=== PATIENT | male | born 1930 | race Caucasian/White ===

== ENCOUNTER 2017-07-09 20:05 | Inpatient (IN) | payer OTHER ==
--- NOTE | 2017-07-09 20:42 | PDOC ---
Attending Attestation - Resident Resident Name: Timothy Blevins - HPI HPI: 07/09/17 22:47 Pt comes with vomiting and shivering; found by family in the bathroom vomiting. Pt has a fever and his septic workup reveals elevated WBC count with a left shift. Pt has pneumonia on CXR. O2say on room air is 92%. With nasal cannula it goes to 100% 07/09/17 22:47 Pt will be treated with abx for a pneumonia. Admit to [facility]; PMD is Dr. Last Doan - Physicial Exam PE: 07/09/17 22:49 Soft abd NT ND; no leg edema; pt afebrile at this after IV ofirmev. No flank pain. Breath sounds clear bilaterally. - Medical Decision Making 07/09/17 22:50 Admit for sepsis and pneumonia.
[2017-07-09] MEDS ORDERED: SODIUM CHLORIDE 0.9% 1000 ML INFUS.BAG IV ONE (20:47)
[2017-07-09] MEDS ORDERED: ACETAMINOPHEN INJECTION 100 ML IVPB ONE (20:55)
--- NOTE | 2017-07-09 21:25 | PDOC ---
History of Present Illness - General Chief Complaint: Nausea/Vomiting Stated Complaint: VOMITING Time Seen by Provider: 07/09/17 20:07 History Source: Family - History of Present Illness Initial Comments: 07/09/17 21:20 The patient is an 87M with a PMH of parkinson's demetia and HTN who presents to the ED via EMS with family. The son is at bedside and is translating. The son states that the patient was in normal health when he went to the restroom and was found by family to be shaking and vomiting in the toilet. The son states that they had to hold him up while he was shaking. This has never happened before. The patient has no complaints and the son states that the patient had no complaints prior to this episode. The patient is demented and does not provide any history. Past History - Past Medical History Allergies/Adverse Reactions: Allergies Allergy/AdvReac Type Severity Reaction Status Date / Time No Known Allergies Allergy Verified 07/09/17 20:10 Home Medications: Ambulatory Orders Amlodipine Besylate [Norvasc -] 10 mg PO DAILY #0 tablet 08/20/12 Aspirin Coated [Ecotrin -] 81 mg PO DAILY #0 tablet.ec 08/20/12 Carbidopa/Levodopa [Carbidopa-Levo 25-100 Tab] 1 each PO TID #0 tablet 08/20/12 Fenofibrate 160 mg PO DAILY #0 tablet 08/20/12 Metoprolol Succinate [Toprol XL -] 50 mg PO DAILY #0 tab.sr.24h 08/20/12 Rosuvastatin Calcium [Crestor] 20 mg PO DAILY #0 tablet 08/20/12 Tamsulosin HCl 0.4 mg PO DAILY 07/09/17 Dementia: Yes GI Disorders: Yes (bph) HTN: Yes Hypercholesterolemia: Yes - Surgical History Abdominal Surgery: No - Immunization History Td Vaccination: Yes TDAP Vaccination: Yes Immunization Up to Date: Yes - Suicide/Smoking/Psychosocial Hx Smoking Status: No Smoking History: Never smoked Years of Tobacco Use: 0 Have you smoked in the past 12 months: No Number of Cigarettes Smoked Daily: 0 Cigars Per Day: 0 Information on smoking cessation initiated: No Hx Alcohol Use: No Drug/Substance Use Hx: No Substance Use Type: None Hx Substance Use Treatment: No Review of Systems - Review of Systems Able to Perform ROS?: No (Patient demented.) *Physical Exam - Vital Signs Last Vital Signs Temp Pulse Resp BP Pulse Ox 97.9 F 96 H 20 143/82 93 L 07/09/17 20:10 07/09/17 20:10 07/09/17 20:10 07/09/17 20:10 07/09/17 20:10 - Physical Exam General Appearance: Yes: Nourished, Appropriately Dressed. No: Apparent Distress HEENT: positive: Normal Voice, Hearing Grossly Normal Respiratory/Chest: positive: Decreased Breath Sounds. negative: Chest Tender, Lungs Clear, Normal Breath Sounds, Respiratory Distress Cardiovascular: positive: Regular Rhythm, Regular Rate, S1, S2. negative: Diastolic Murmur, Systolic Murmur Gastrointestinal/Abdominal: positive: Flat, Soft. negative: Tender Musculoskeletal: negative: CVA Tenderness (R), CVA Tenderness (L) Extremity: positive: Normal Inspection, Normal Range of Motion. negative: Swelling, Calf Tenderness Integumentary: positive: Dry, Warm. 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 negative: Fully Oriented, EOM Palsy, Facial Droop, Numbness, Sensory Deficit, Confused, Disoriented Heart Score/ECG Review - History History: Slightly suspicious - Electrocardiogram EKG: Non specific repolarization disturbance - Age Age: >/= 65 - Risk Factors Risk Factors Heart Score: Yes Hx Hypertension Based on the list above the patient has:: 1-2 risk factors - Troponin Troponin: </= normal limit - Score Heart Score - Total: 4 - ECG Intrepretation Rhythm: Regular Rhythm - [place]: Normal - QRS Widened: RBBB - ECG Impressions Comment:: 07/09/17 22:11 NSR Rate 86 QRS 92 QTc 428 ED Treatment Course - LABORATORY CBC & Chemistry Diagram: 07/09/17 21:25 07/09/17 21:15 - RADIOLOGY Radiology Studies Ordered: Category Date Time Status CHEST X-RAY PORTABLE* [RAD] Stat Radiology 07/09/17 20:45 Taken Medical Decision Making - Medical Decision Making 07/09/17 21:26 The patient is an 87M with a PMH of Parkinson's dementia and HTN who presents to the ED after an episode of vomiting. The patient has a notable temp of 102.3F. Sepsis protocol is being followed. I have high suspicion for a UTI or PNA which could cause the patient's current presentation. Will order labs, give IV tylenol, fluids, and will reassess patient when labs return. 07/09/17 22:08 WBC 13.4 w/ neutrophilia. UA indicating proteinuria. BUN/Cr 24/1.5. 07/09/17 22:37 Trop 0.06. I have spoken with Dr. Ryan and given her report on this patient. He will be admitted to her service with a tele bed. UA negative for UTI. CXR showing patchy infiltrate and will cover with zosyn for CAP. *DC/Admit/Observation/Transfer Diagnosis at time of Disposition: Non-ST elevation (NSTEMI) myocardial infarction Pneumonia Qualifiers: Pneumonia type: due to unspecified organism Laterality: bilateral Lung location : unspecified part of lung Qualified Code(s): J18.9 - Pneumonia, unspecified organism; J18.9 - Pneumonia, unspecified organism - Discharge Dispostion Condition at time of disposition: Stable Admit: Yes - Referrals Referrals: Last Doan MD [Primary Care Provider] -
[2017-07-09 21:34] LABS: VENOUS PH 7.4 (7.32-7.42)
[2017-07-09 21:34] LABS: BASOPHIL 0.3 % (0-2.0); EOSINOPHIL 0.1 % (0-4.5); MCH 25.7 pg (25.7-33.7); MCHC 32.3 g/dl (32.0-35.9); MEAN CELL VOLUME 79.7 fl (80-96); MEAN PLT VOLUME 8.7 fl (7.5-11.1); NEUTROPHILS 91.3 % (42.8-82.8); RDW 16.8 % (11.9-15.9); WHITE BLOOD COUNT 13.4 K/mm3 (4.0-10.0)
[2017-07-09 21:35] LABS: VENOUS BLOOD GAS HCO3 26.2 meq/L (19-25)
[2017-07-09 21:49] LABS: URINE APPEARANCE CLEAR; URINE BILIRUBIN NEGATIVE (NEGATIVE); URINE BLOOD 1+ (NEGATIVE); URINE COLOR YELLOW; URINE GLUCOSE (UA) NEGATIVE (NEGATIVE); URINE KETONE TRACE (NEGATIVE); URINE NITRITE NEGATIVE (NEGATIVE); URINE UROBILINOGEN NEGATIVE mg/dL (0.2-1.0)
[2017-07-09 21:54] LABS: ALBUMIN 3.7 g/dl (3.4-5.0); ANION GAP 9 (8-16); BILIRUBIN,TOTAL 0.7 mg/dL (0.2-1.0); CALCIUM 8.6 mg/dL (8.5-10.1); CO2 25 mmol/L (21-32); CREATININE 1.5 mg/dL (0.7-1.3); GLUCOSE,RANDOM 126 mg/dL (74-106); SGPT/ALT 24 U/L (12-78)
[2017-07-09 21:54] LABS: URINE PROTEIN 2+ (NEGATIVE)
[2017-07-09 21:55] LABS: URINE MUCUS RARE; URINE RBC 1 /hpf (0-3); URINE WBC 2 /hpf (3-5)
[2017-07-09 21:57] LABS: ALK PHOS 53 U/L (45-117); CPK 95 IU/L (39-308); TROPONIN I 0.06 ng/ml (0.00-0.05)
[2017-07-09 21:59] LABS: PLATELET COUNT 310 K/MM3 (134-434)
[2017-07-09 22:04] LABS: SGOT/AST 34 U/L (15-37)
[2017-07-09] MEDS ORDERED: PIPERACILLIN/TAZOB 4.5 GM/100 ML PRE-DOCKED IVPB ONE (22:40)
[2017-07-09] MEDS ORDERED: PIPERACILLIN/TAZOB 4.5 GM 100 ML IVPB ONE (23:24)
[2017-07-09] MEDS ORDERED: ACETAMINOPHEN 1000 MG/100 ML VIAL (NON FORMULARY) IVPB ONE (23:49)
[2017-07-10] MEDS ORDERED: ACETAMINOPHEN 325 MG TABLET (FP) PO PRN (02:16)
[2017-07-10] MEDS ORDERED: ONDANSETRON 4 MG/2 ML VIAL IVPB PRN (02:18)
[2017-07-10] MEDS: DEXTROSE 5%-0.45% SALINE 1,000 ML IV SCH ×2 (03:12→09:25)
[2017-07-10] MEDS ORDERED: CARBIDOPA/LEVODOPA 25/100 TABLET (FP) ONE (05:23)
[2017-07-10] MEDS: CARBIDOPA/LEVODOPA 25/100 TABLET (FP) PO SCH ×3 (05:28→21:09)
[2017-07-10 05:30] LABS: BASOPHIL 0.1 % (0-2.0); EOSINOPHIL 0.1 % (0-4.5); MCH 25.6 pg (25.7-33.7); MCHC 32.5 g/dl (32.0-35.9); MEAN PLT VOLUME 7.8 fl (7.5-11.1); PLATELET COUNT 268 K/MM3 (134-434); RDW 16.3 % (11.9-15.9); WHITE BLOOD COUNT 12.5 K/mm3 (4.0-10.0)
[2017-07-10 05:52] LABS: ANION GAP 8 (8-16); BILIRUBIN,TOTAL 0.6 mg/dL (0.2-1.0); CALCIUM 8.2 mg/dL (8.5-10.1); CO2 25 mmol/L (21-32); CREATININE 1.5 mg/dL (0.7-1.3); GLUCOSE,RANDOM 174 mg/dL (74-106); SGOT/AST 22 U/L (15-37); SGPT/ALT 12 U/L (12-78); TOT PROT 5.9 g/dl (6.4-8.2)
[2017-07-10 05:53] LABS: ALK PHOS 43 U/L (45-117)
[2017-07-10 05:55] LABS: TROPONIN I 0.14 ng/ml (0.00-0.05)
[2017-07-10] MEDS ORDERED: TAMSULOSIN HCL 0.4 MG CAP.ER.24H (FP) ONE (09:15)
--- NOTE | 2017-07-10 09:17 | CON.CARD ---
Consult Consult Specialty:: Cardiology Referred by:: Dr. Ryan Reason for Consultation:: Elevated troponin - History of Present Illness Chief Complaint: Chills History of Present Illness: 87 year old man with a history of Parkinsons disease and dementia, HTN, CKD, mildly dilated asc aorta, BPH admitted with fever, chills, elevated wbc and incidentally noted to have a slightly elevated troponin.. Pt seen and examined this am in nad. no complaints of chest pain or sob reported. no palpitations. no lightheadedness, dizziness, syncope, or near syncope. no pnd, orthopnea, or LE edema. 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 Cardio/Vascular: Yes: Aneurysm, HTN Renal/: Yes: Renal Inusuff, BPH - Alcohol/Substance Use Hx Alcohol Use: No - Smoking History Smoking history: Never smoked Have you smoked in the past 12 months: No Aproximately how many cigarettes per day: 0 - Social History ADL: Family Assistance History of Recent Travel: No Home Medications - Allergies Allergies/Adverse Reactions: Allergies Allergy/AdvReac Type Severity Reaction Status Date / Time No Known Allergies Allergy Verified 07/09/17 20:10 - Home Medications Home Medications: Ambulatory Orders Amlodipine Besylate [Norvasc -] 10 mg PO DAILY #0 tablet 08/20/12 Aspirin Coated [Ecotrin -] 81 mg PO DAILY #0 tablet.ec 08/20/12 Carbidopa/Levodopa [Carbidopa-Levo 25-100 Tab] 1 each PO TID #0 tablet 08/20/12 Fenofibrate 160 mg PO DAILY #0 tablet 08/20/12 Metoprolol Succinate [Toprol XL -] 50 mg PO DAILY #0 tab.sr.24h 08/20/12 Rosuvastatin Calcium [Crestor] 20 mg PO DAILY #0 tablet 08/20/12 Tamsulosin HCl 0.4 mg PO DAILY 07/09/17 Family Disease History - Family Disease History Family History: Denies Review of Systems - Review of Systems Constitutional: reports: Chills, Fever, Weakness. denies: No Symptoms, Diaphoresis, Lethargy, Loss of Appetite, Malaise, Night Sweats, Unintentional Wgt. Loss, Other Eyes: denies: No Symptoms, Blind Spots, Blurred Vision, Double Vision, Eye Pain , Floaters, Photophobia, Recent Change in Vision, Other HENT: denies: No Symptoms, Difficult Swallowing, Ear Discharge, Ear Pain, Epistaxis, Gingival Bleeding, Hearing Loss, Mouth Swelling, Nasal Congestion, Ocular Prosthesis, Throat Pain, Toothache, Ringing in Ears, Other Neck: denies: No Symptoms, Decreased ROM, Lumps, Pain on Movement, Stiffness, Swollen Glands, Tenderness, Other Cardiovascular: denies: No Symptoms, Chest Pain, Edema, Palpitations, Shortness of Breath, Other Respiratory: denies: No Symptoms, Cough, Exercise Intolerance, Hemoptysis, Orthopnea, PND, Snoring, SOB, SOB on Exertion, Wheezing, Other Gastrointestinal: denies: No Symptoms, Abdominal Pain, Bloating, Constipation, Diarrhea, Dysphagia, Indigestion, Melena, Nausea, Rectal Bleeding, Vomiting, Vomiting Blood, Other Genitourinary: denies: No Symptoms, Burning, Discharge, Dysuria, Flank Pain, Frequency, Hematuria, Incontinence, Lesions, Menses, Pain, Testicular Mass, Testicular Pain, Testicular Swelling, Urgency, Vaginal Bleeding, Other Breasts: denies: No Symptoms Reported, See HPI, Breast Implants, Discharge from Nipple, Lumps, Pain, Skin Changes, Other Musculoskeletal: denies: No Symptoms, Back Pain, Crepitus, Decreased ROM, Extremity Pain, Joint Pain, Joint Swelling, Muscle Pain, Muscle Cramps, Muscle Weakness, Other Integumentary: denies: No Symptoms, Blister, Bruising, Change in Color, Eczema, Erythema, Incision, Lesions, Lump, Pallor, Pruritis, Rash, Wound, Other Neurological: reports: Pre-Existing Deficit. denies: No Symptoms, Change in LOC , Change in Speech, Confusion, Dizziness, Headache, Incoordination, Numbness, Parasthesia, Seizure, Syncope, Tremors, Unsteady Gait, Weakness, Other Endocrine: denies: No Symptoms, Excessive Sweating, Flushing, Increased Hunger, Increased Thirst, Intolerance to Cold, Intolerance to Heat, Unexplained Weight Gain, Unexplained Weight Loss, Other Hematology/Lymphatic: denies: No Symptoms, Easily Bruised, Excessive Bleeding, Swollen Glands, Other Psychiatric: denies: No Symptoms, Altered Sleep Pattern, Anxiety, Depression, Hallucinations, Panic, Paranoia, Suicidal, Other - Risk Factors Known Risk Factors: Yes: Age, Hypertension Vital Signs: Vital Signs Temperature 98.6 F 07/10/17 07:26 Pulse Rate 66 07/10/17 07:26 Respiratory Rate 18 07/10/17 05:24 Blood Pressure 127/68 07/10/17 07:26 O2 Sat by Pulse Oximetry (%) 100 07/10/17 07:26 Constitutional: Yes: No Distress, Calm Eyes: Yes: Conjunctiva Clear, EOM Intact, PERRL HENT: Yes: Atraumatic, Normocephalic Neck: Yes: Supple, Trachea Midline Respiratory: Yes: Regular, CTA Bilaterally. No: Rales, Rhonchi, SOB, Wheezes Gastrointestinal: Yes: Normal Bowel Sounds, Soft. No: Distention, Tenderness Cardiovascular: Yes: Regular Rate and Rhythm. No: Bradycardia, Tachycardia, Pulse Irregular, Gallop, Rub, Varicosities JVD: No Carotid Bruit: No PMI: Non-Displaced Heart Sounds: Yes: S1, S2. No: Split S2, S3, S4, Clicks, Gallop, Rub, Bruit Murmur: No: Systolic Murmur, Diastolic Murmur Extremities: Yes: WNL Edema: No Peripheral Pulses WNL: Yes Peripheral Pulses: 2+ Left Doralis Pedis, 2+ Right Dorsalis Pedis Integumentary: Yes: WNL Neurological: Yes: Alert Psychiatric: Yes: Alert - Other Data Labs, Other Data: CBC, BMP 07/10/17 05:20 07/10/17 05:20 INR, PTT INR Cancelled 07/09/17 21:15 Troponin, BNP 07/10/17 05:20 Troponin I 0.14 H D Troponin, BNP 07/10/17 05:20 Troponin I 0.14 H D ekg-nsr 86bpm, incomplete rbbb, nsst Echo: Report Reviewed Ejection Fraction %: LVEF > or = 40 % Imaging - Results Chest X-ray: Report Reviewed, Image Reviewed EKG: Report Reviewed, Image Reviewed Other: Report Reviewed, Image Reviewed Assessment/Plan 87 year old man with a history of Parkinsons disease and dementia, HTN, CKD, mildly dilated asc aorta, BPH admitted with fever, chills, elevated wbc and incidentally noted to have a slightly elevated troponin. Elevated troponin-minimally elevated with normal CK level, did not significantly trend up -unlikely ACS, more likely trop elevated due to CKD and sepsis -no reported chest pain or sob -no ischemia on ekg -cont to trend cardiac enzymes to ensure they do not trend up, once trend down can stop -cont home medical regimen for now -no events on tele overnight, can dc tele -f/up echo to assess for any structural heart disease -no ischemia on last nuclear stress test 2014 HTN-well controlled -monitor off medication for now in setting of likely sepsis -once establish clear stable BP can re-introduce meds as needed Mildly dilated asc aorta -stable, monitored as outpatient -outpatient f/up Carotid plaque without stenosis -cont asa and statin
[2017-07-10] MEDS: TAMSULOSIN HCL 0.4 MG CAP.ER.24H (FP) PO SCH (09:25)
[2017-07-10] MEDS ORDERED: PIPERACILLIN/TAZOB 3.375 GM 50 ML IVPB SCH (10:00)
[2017-07-10] MEDS: HEPARIN NA (PORCINE) 5,000 UNITS/ML 1ML VIAL SQ SCH ×2 (10:56→21:09)
[2017-07-10] MEDS: FENOFIBRIC ACID 135 MG CAP PO SCH (10:56)
[2017-07-10] MEDS: ASPIRIN COATED 81 MG TABLET.EC PO SCH (10:57)
--- NOTE | 2017-07-10 13:40 | HP ---
Admitting History and Physical - Admission History of Present Illness: Pt is a 87 y/o male with a PMH significant for parkinson's, demetia,HTN, BPH, and CKD who is unable to give a history. Pt's son states that the patient was in normal health when he went to the restroom and was found by family to be shaking and vomiting in the toilet. The son states that they had to hold him up while he was shaking. In the ER pt found to be febrile to 102.9 w/ a WBC of > 13 ,000. 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 Cardio/Vascular: Yes: Aneurysm, HTN Renal/: Yes: Renal Inusuff, BPH - Alcohol/Substance Use Hx Alcohol Use: No - Smoking History Smoking history: Never smoked Have you smoked in the past 12 months: No Aproximately how many cigarettes per day: 0 - Social History ADL: Family Assistance History of Recent Travel: No Home Medications - Allergies Allergies/Adverse Reactions: Allergies Allergy/AdvReac Type Severity Reaction Status Date / Time No Known Allergies Allergy Verified 07/09/17 20:10 - Home Medications Home Medications: Ambulatory Orders Amlodipine Besylate [Norvasc -] 10 mg PO DAILY #0 tablet 08/20/12 Aspirin Coated [Ecotrin -] 81 mg PO DAILY #0 tablet.ec 08/20/12 Carbidopa/Levodopa [Carbidopa-Levo 25-100 Tab] 1 each PO TID #0 tablet 08/20/12 Fenofibrate 160 mg PO DAILY #0 tablet 08/20/12 Metoprolol Succinate [Toprol XL -] 50 mg PO DAILY #0 tab.sr.24h 08/20/12 Rosuvastatin Calcium [Crestor] 20 mg PO DAILY #0 tablet 08/20/12 Tamsulosin HCl 0.4 mg PO DAILY 07/09/17 History Source: Medical Record - 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, 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 Cardiovascular: Yes: Aneurysm, HTN Renal/: Yes: Renal Inusuff, BPH - Smoking History Smoking history: Never smoked Have you smoked in the past 12 months: No Aproximately how many cigarettes per day: 0 - Alcohol/Substance Use Hx Alcohol Use: No - Social History ADL: Family Assistance History of Recent Travel: No Home Medications - Allergies Allergies/Adverse Reactions: Allergies Allergy/AdvReac Type Severity Reaction Status Date / Time No Known Allergies Allergy Verified 07/09/17 20:10 - Home Medications Home Medications: Ambulatory Orders Amlodipine Besylate [Norvasc -] 10 mg PO DAILY #0 tablet 08/20/12 Aspirin Coated [Ecotrin -] 81 mg PO DAILY #0 tablet.ec 08/20/12 Carbidopa/Levodopa [Carbidopa-Levo 25-100 Tab] 1 each PO TID #0 tablet 08/20/12 Fenofibrate 160 mg PO DAILY #0 tablet 08/20/12 Metoprolol Succinate [Toprol XL -] 50 mg PO DAILY #0 tab.sr.24h 08/20/12 Rosuvastatin Calcium [Crestor] 20 mg PO DAILY #0 tablet 08/20/12 Tamsulosin HCl 0.4 mg PO DAILY 07/09/17 Family Disease History - Family Disease History Family History: Unable to Obtain Review of Systems Unable to obtain ROS, reason: Dementia Physical Examination Vital Signs: Vital Signs Temperature 97.8 F 07/10/17 13:00 Pulse Rate 74 07/10/17 13:00 Respiratory Rate 18 07/10/17 13:00 Blood Pressure 141/85 07/10/17 13:00 O2 Sat by Pulse Oximetry (%) 100 07/10/17 09:00 Constitutional: Yes: No Distress Neck: Yes: WNL, Supple Cardiovascular: Yes: WNL, Regular Rate and Rhythm, Murmur Respiratory: Yes: WNL, Regular, CTA Bilaterally Gastrointestinal: Yes: WNL, Normal Bowel Sounds, Soft, Abdomen, Obese Musculoskeletal: Yes: WNL Extremities: Yes: WNL Edema: No Neurological: Yes: Other (Nonfocal) Labs: CBC, BMP 07/10/17 05:20 07/10/17 05:20 Problem List - Problems (1) Sepsis Assessment/Plan: Will hold antihypertensive meds in setting of sepsis Cont IV zosyn Add IV vanco Follow cultures ID consult Code(s): A41.9 - SEPSIS, UNSPECIFIED ORGANISM (2) Elevated troponin Assessment/Plan: As per cardio ?Demand ischemia Monitor cpk/troponin Code(s): R74.8 - ABNORMAL LEVELS OF OTHER SERUM ENZYMES (3) HTN (hypertension) Assessment/Plan: Antihypertensives on hold due to sepsis Cont to monitor BP Code(s): I10 - ESSENTIAL (PRIMARY) HYPERTENSION (4) BPH (benign prostatic hyperplasia) Assessment/Plan: Cont flomax Code(s): N40.0 - BENIGN PROSTATIC HYPERPLASIA WITHOUT LOWER URINRY TRACT SYMP (5) Parkinsons Assessment/Plan: Cont sinemet Code(s): G20 - PARKINSON'S DISEASE (6) Dementia Code(s): F03.90 - UNSPECIFIED DEMENTIA WITHOUT BEHAVIORAL DISTURBANCE (7) HLD (hyperlipidemia) Assessment/Plan: Cont crestor/fenofibrate Code(s): E78.5 - HYPERLIPIDEMIA, UNSPECIFIED
[2017-07-10 14:06] LABS: URINE LEUK ESTERASE Negative (NEGATIVE)
[2017-07-10] MEDS ORDERED: VANCOMYCIN 1 GRAM (PRE-DOCKED) 250 ML IVPB ONE (14:33)
[2017-07-10] MEDS ORDERED: VANCOMYCIN 1 GRAM (PRE-DOCKED) 1,000 MG/250 ML BAG IVPB ONE (15:00)
--- NOTE | 2017-07-10 15:08 | CON.ID ---
Consult Consult Specialty:: infectious diseases Referred by:: Reason for Consultation:: sepsis,bacteremia - History of Present Illness Chief Complaint: fever,weakness History of Present Illness: 87 year old man with a history of Parkinsons disease and dementia, HTN, CKD, mildly dilated asc aorta, BPH admitted with fever, chills, Pt's son states that the patient was in normal health when he went to the restroom and was found by family to be shaking and vomiting in the toilet. The son states that they had to hold him up while he was shaking. 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 Cardio/Vascular: Yes: Aneurysm, HTN Renal/: Yes: Renal Inusuff, BPH - Alcohol/Substance Use Hx Alcohol Use: No - Smoking History Smoking history: Never smoked Have you smoked in the past 12 months: No Aproximately how many cigarettes per day: 0 - Social History ADL: Family Assistance History of Recent Travel: No Home Medications - Allergies Allergies/Adverse Reactions: Allergies Allergy/AdvReac Type Severity Reaction Status Date / Time No Known Allergies Allergy Verified 07/09/17 20:10 - Home Medications Home Medications: Ambulatory Orders Amlodipine Besylate [Norvasc -] 10 mg PO DAILY #0 tablet 08/20/12 Aspirin Coated [Ecotrin -] 81 mg PO DAILY #0 tablet.ec 08/20/12 Carbidopa/Levodopa [Carbidopa-Levo 25-100 Tab] 1 each PO TID #0 tablet 08/20/12 Fenofibrate 160 mg PO DAILY #0 tablet 08/20/12 Metoprolol Succinate [Toprol XL -] 50 mg PO DAILY #0 tab.sr.24h 08/20/12 Rosuvastatin Calcium [Crestor] 20 mg PO DAILY #0 tablet 08/20/12 Tamsulosin HCl 0.4 mg PO DAILY 07/09/17 Review of Systems - Review of Systems Constitutional: reports: Chills, Fever Eyes: reports: No Symptoms HENT: reports: No Symptoms Neck: reports: No Symptoms Cardiovascular: reports: No Symptoms Respiratory: reports: No Symptoms Gastrointestinal: reports: No Symptoms Genitourinary: reports: No Symptoms Musculoskeletal: reports: No Symptoms Integumentary: reports: No Symptoms Neurological: reports: No Symptoms Endocrine: reports: No Symptoms Hematology/Lymphatic: reports: No Symptoms Psychiatric: reports: No Symptoms Physical Exam Vital Signs: Vital Signs Temperature 97.8 F 07/10/17 13:00 Pulse Rate 74 07/10/17 13:00 Respiratory Rate 18 07/10/17 13:00 Blood Pressure 141/85 07/10/17 13:00 O2 Sat by Pulse Oximetry (%) 100 07/10/17 09:00 Constitutional: Yes: Well Nourished, No Distress, Calm Neck: Yes: Supple, Trachea Midline Cardiovascular: Yes: Regular Rate and Rhythm Respiratory: Yes: Regular, CTA Bilaterally Gastrointestinal: Yes: Normal Bowel Sounds, Soft Musculoskeletal: Yes: WNL Extremities: Yes: WNL Neurological: Yes: Alert, Oriented Psychiatric: Yes: Alert, Oriented Labs: CBC, BMP 07/10/17 05:20 07/10/17 05:20 Imaging - Results Chest X-ray: Report Reviewed, Image Reviewed Ultrasound: Report Reviewed, Image Reviewed Assessment/Plan patient found to have bactermia patient has been given vanco and zosyn also incidentally patient found to have high troponin cardio on case Problem List - Problems (1) Sepsis Code(s): A41.9 - SEPSIS, UNSPECIFIED ORGANISM (2) Elevated troponin Code(s): R74.8 - ABNORMAL LEVELS OF OTHER SERUM ENZYMES (3) HTN (hypertension) Code(s): I10 - ESSENTIAL (PRIMARY) HYPERTENSION (4) BPH (benign prostatic hyperplasia) Code(s): N40.0 - BENIGN PROSTATIC HYPERPLASIA WITHOUT LOWER URINRY TRACT SYMP (5) Parkinsons Code(s): G20 - PARKINSON'S DISEASE (6) Dementia Code(s): F03.90 - UNSPECIFIED DEMENTIA WITHOUT BEHAVIORAL DISTURBANCE (7) HLD (hyperlipidemia) Code(s): E78.5 - HYPERLIPIDEMIA, UNSPECIFIED 8 gm positive bacteremia plan will continue zosyn will stop vanco hydration close watch on the wbc await for identification of the bacteria
[2017-07-10 15:29] VITALS: BMI 13.2
[2017-07-10] MEDS ORDERED: FLU VACCINE QUAD 60 MCG/0.5 ML (MDV 17-18) IM ONE (16:45)
[2017-07-10] MEDS: PIPERACILLIN/TAZOB 4.5 GM 100 ML IVPB SCH (20:21)
[2017-07-10] MEDS ORDERED: ROSUVASTATIN CA 10 MG TABLET (FP) ONE (20:36)
[2017-07-10] MEDS: ROSUVASTATIN CA 20 MG TABLET (FP) PO SCH (21:09)
[2017-07-11] MEDS: PIPERACILLIN/TAZOB 4.5 GM 100 ML IVPB SCH ×3 (01:27→17:43)
[2017-07-11] MEDS: DEXTROSE 5%-0.45% SALINE 1,000 ML IV SCH ×2 (05:55→05:57)
[2017-07-11] MEDS: CARBIDOPA/LEVODOPA 25/100 TABLET (FP) PO SCH ×3 (05:56→21:08)
--- NOTE | 2017-07-11 07:11 | EKG ---
Test Reason : Blood Pressure : / mmHG Vent. Rate : 086 BPM Atrial Rate : 086 BPM P-R Int : 174 ms QRS Dur : 092 ms QT Int : 358 ms P-R-T Axes : 061 -26 093 degrees QTc Int : 428 ms NORMAL SINUS RHYTHM INCOMPLETE RIGHT BUNDLE BRANCH BLOCK NONSPECIFIC T WAVE ABNORMALITY ABNORMAL ECG WHEN COMPARED WITH ECG OF 18-AUG-2012 11:42, T WAVE VARIATION Confirmed by MORGAN LAY, AKBAR ([id number]) on 07/11/2017 7:11:26 AM Referred By: Confirmed By:AKBAR MORA MD
[2017-07-11 08:32] LABS: BASOPHIL 0.7 % (0-2.0); EOSINOPHIL 3.4 % (0-4.5); MCHC 32.4 g/dl (32.0-35.9); MEAN CELL VOLUME 80.1 fl (80-96); MEAN PLT VOLUME 8.7 fl (7.5-11.1); NEUTROPHILS 80.6 % (42.8-82.8); PLATELET COUNT 270 K/MM3 (134-434); RDW 16.9 % (11.9-15.9); WHITE BLOOD COUNT 9.5 K/mm3 (4.0-10.0)
[2017-07-11 08:59] LABS: ALBUMIN 3.1 g/dl (3.4-5.0); ANION GAP 7 (8-16); CO2 27 mmol/L (21-32); GLUCOSE,RANDOM 92 mg/dL (74-106)
[2017-07-11 09:02] LABS: ALK PHOS 40 U/L (45-117); BILIRUBIN,TOTAL 0.4 mg/dL (0.2-1.0); CREATININE 1.4 mg/dL (0.7-1.3); SGOT/AST 25 U/L (15-37); SGPT/ALT 9 U/L (12-78); TOT PROT 5.9 g/dl (6.4-8.2)
[2017-07-11] MEDS ORDERED: PT OWN MED DRAWER 7, Y5N ONE ×2 (09:08→17:11)
--- NOTE | 2017-07-11 09:09 | PN ---
Progress Note, Physician Chief Complaint: no chest pain Echo with normal LV function History of Present Illness: Blood cx + gram + cocci in chains - Current Medication List Current Medications: Active Medications Acetaminophen (Tylenol -) 650 mg PO Q4H PRN PRN Reason: FEVER OR PAIN Aspirin (Ecotrin -) 81 mg PO DAILY [facility] Last Admin: 07/10/17 10:57 Dose: 81 mg Carbidopa/Levodopa (Sinemet 25/100 -) 1 each PO TID [facility] Last Admin: 07/11/17 05:56 Dose: 1 each Fenofibric Acid (Trilipix -) 135 mg PO DAILY [facility] Last Admin: 07/10/17 10:56 Dose: 135 mg Heparin Sodium (Porcine) (Heparin -) 5,000 unit SQ BID [facility] Last Admin: 07/10/17 21:09 Dose: 5,000 unit Dextrose/Sodium Chloride (D5-1/2ns -) 1,000 mls @ 50 mls/hr IV ASDIR [facility] Last Admin: 07/11/17 05:57 Dose: 50 mls/hr Vancomycin HCl 1,000 mg/ (Dextrose) 250 mls @ 250 mls/hr IVPB BID [facility] PRN Reason: Protocol Piperacillin/Tazobactam/Dextrose (Zosyn 4.5gm Ivpb (Premix)) 100 mls @ 200 mls/ hr IVPB Q8H-IV [facility] PRN Reason: Protocol Last Admin: 07/11/17 01:27 Dose: 200 mls/hr Ondansetron HCl (Zofran Injection) 4 mg IVPB Q8H PRN PRN Reason: NAUSEA Rosuvastatin Calcium (Crestor -) 20 mg PO HS [facility] Last Admin: 07/10/17 21:09 Dose: 20 mg Tamsulosin HCl (Flomax -) 0.4 mg PO DAILY@0830 [facility] Last Admin: 07/10/17 09:25 Dose: 0.4 mg - Objective Vital Signs: Vital Signs Temperature 97.5 F L 07/11/17 06:47 Pulse Rate 74 07/11/17 06:47 Respiratory Rate 20 07/11/17 06:47 Blood Pressure 175/76 07/11/17 06:47 O2 Sat by Pulse Oximetry (%) 99 07/11/17 01:00 Constitutional: Yes: No Distress Cardiovascular: Yes: Regular Rate and Rhythm Respiratory: Yes: CTA Bilaterally Gastrointestinal: Yes: Soft Edema: No Neurological: Yes: Alert Labs: CBC, BMP 07/11/17 06:50 INR, PTT INR Cancelled 07/09/17 21:15 Laboratory Tests 07/09/17 07/10/17 07/11/17 21:15 05:20 06:50 WBC 9.5 Hgb 10.9 L Plt Count 270 Potassium Creatinine Creatine Kinase 95 85 Troponin I 0.06 H D 0.14 H D 07/11/17 06:50 WBC Hgb Plt Count Potassium Pending Creatinine Pending Creatine Kinase Troponin I - ....Imaging EKG: Image Reviewed Assessment/Plan Assessment/Plan 87 year old man with a history of Parkinsons disease and dementia, HTN, CKD, mildly dilated asc aorta, BPH admitted with fever, chills, elevated wbc and incidentally noted to have a slightly elevated troponin. Elevated troponin-minimally elevated with normal CK level, did not significantly trend up -unlikely ACS, more likely trop elevated due to CKD and sepsis, gram + bacteremia -no reported chest pain or sob -no ischemia on ekg -no ischemia on last nuclear stress test 2014 -Echo with normal LV function Mildly dilated asc aorta -stable, monitored as outpatient -outpatient f/up Sepsis/gram + bacteremia -ID following on IV abx -serial cultures -TTE with no gross vegetation
[2017-07-11] MEDS: HEPARIN NA (PORCINE) 5,000 UNITS/ML 1ML VIAL SQ SCH ×2 (09:18→21:08)
[2017-07-11] MEDS: TAMSULOSIN HCL 0.4 MG CAP.ER.24H (FP) PO SCH (09:19)
[2017-07-11] MEDS: FENOFIBRIC ACID 135 MG CAP PO SCH (09:19)
[2017-07-11] MEDS: ASPIRIN COATED 81 MG TABLET.EC PO SCH (09:19)
--- NOTE | 2017-07-11 09:39 | PN ---
Progress Note, Physician - Current Medication List Current Medications: Active Medications Acetaminophen (Tylenol -) 650 mg PO Q4H PRN PRN Reason: FEVER OR PAIN Aspirin (Ecotrin -) 81 mg PO DAILY [facility] Last Admin: 07/11/17 09:19 Dose: 81 mg Carbidopa/Levodopa (Sinemet 25/100 -) 1 each PO TID [facility] Last Admin: 07/11/17 14:24 Dose: 1 each Fenofibric Acid (Trilipix -) 135 mg PO DAILY [facility] Last Admin: 07/11/17 09:19 Dose: 135 mg Heparin Sodium (Porcine) (Heparin -) 5,000 unit SQ BID [facility] Last Admin: 07/11/17 09:18 Dose: 5,000 unit Dextrose/Sodium Chloride (D5-1/2ns -) 1,000 mls @ 50 mls/hr IV ASDIR [facility] Last Admin: 07/11/17 05:57 Dose: 50 mls/hr Vancomycin HCl 1,000 mg/ (Dextrose) 250 mls @ 250 mls/hr IVPB BID [facility] PRN Reason: Protocol Piperacillin/Tazobactam/Dextrose (Zosyn 4.5gm Ivpb (Premix)) 100 mls @ 200 mls/ hr IVPB Q8H-IV [facility] PRN Reason: Protocol Last Admin: 07/11/17 17:43 Dose: 200 mls/hr Ondansetron HCl (Zofran Injection) 4 mg IVPB Q8H PRN PRN Reason: NAUSEA Rosuvastatin Calcium (Crestor -) 20 mg PO HS [facility] Last Admin: 07/10/17 21:09 Dose: 20 mg Tamsulosin HCl (Flomax -) 0.4 mg PO DAILY@0830 [facility] Last Admin: 07/11/17 09:19 Dose: 0.4 mg - Objective Vital Signs: Vital Signs Temperature 100 F H 07/11/17 17:15 Pulse Rate 85 07/11/17 17:15 Respiratory Rate 20 07/11/17 17:15 Blood Pressure 133/60 07/11/17 17:15 O2 Sat by Pulse Oximetry (%) 100 07/11/17 13:00 Labs: CBC, BMP 07/11/17 06:50 07/11/17 06:50 INR, PTT INR Cancelled 07/09/17 21:15 <Lisa Ryan - Last Filed: 07/11/17 20:47> History of Present Illness: feeling much better no complaints - Current Medication List Current Medications: Active Medications Acetaminophen (Tylenol -) 650 mg PO Q4H PRN PRN Reason: FEVER OR PAIN Aspirin (Ecotrin -) 81 mg PO DAILY [facility] Last Admin: 07/11/17 09:19 Dose: 81 mg Carbidopa/Levodopa (Sinemet 25/100 -) 1 each PO TID [facility] Last Admin: 07/11/17 05:56 Dose: 1 each Fenofibric Acid (Trilipix -) 135 mg PO DAILY [facility] Last Admin: 07/11/17 09:19 Dose: 135 mg Heparin Sodium (Porcine) (Heparin -) 5,000 unit SQ BID [facility] Last Admin: 07/11/17 09:18 Dose: 5,000 unit Dextrose/Sodium Chloride (D5-1/2ns -) 1,000 mls @ 50 mls/hr IV ASDIR [facility] Last Admin: 07/11/17 05:57 Dose: 50 mls/hr Vancomycin HCl 1,000 mg/ (Dextrose) 250 mls @ 250 mls/hr IVPB BID [facility] PRN Reason: Protocol Piperacillin/Tazobactam/Dextrose (Zosyn 4.5gm Ivpb (Premix)) 100 mls @ 200 mls/ hr IVPB Q8H-IV [facility] PRN Reason: Protocol Last Admin: 07/11/17 01:27 Dose: 200 mls/hr Ondansetron HCl (Zofran Injection) 4 mg IVPB Q8H PRN PRN Reason: NAUSEA Rosuvastatin Calcium (Crestor -) 20 mg PO HS [facility] Last Admin: 07/10/17 21:09 Dose: 20 mg Tamsulosin HCl (Flomax -) 0.4 mg PO DAILY@0830 [facility] Last Admin: 07/11/17 09:19 Dose: 0.4 mg - Objective Vital Signs: Vital Signs Temperature 97.5 F L 07/11/17 06:47 Pulse Rate 74 07/11/17 06:47 Respiratory Rate 20 07/11/17 06:47 Blood Pressure 175/76 07/11/17 06:47 O2 Sat by Pulse Oximetry (%) 99 07/11/17 01:00 Constitutional: Yes: No Distress, Calm Cardiovascular: Yes: Regular Rate and Rhythm Respiratory: Yes: Regular, CTA Bilaterally Gastrointestinal: Yes: Normal Bowel Sounds, Soft Musculoskeletal: Yes: WNL Extremities: Yes: WNL Neurological: Yes: Alert, Oriented Psychiatric: Yes: Alert, Oriented Labs: CBC, BMP 07/11/17 06:50 07/11/17 06:50 INR, PTT INR Cancelled 07/09/17 21:15 <ElsyFranciscokika Carter - Last Filed: 07/11/17 22:11> Problem List - Problems (1) Sepsis Code(s): A41.9 - SEPSIS, UNSPECIFIED ORGANISM (2) Elevated troponin Assessment/Plan: Due to sepsis Await echo Code(s): R74.8 - ABNORMAL LEVELS OF OTHER SERUM ENZYMES (3) HTN (hypertension) Assessment/Plan: Will dc IVF and monitor BP Code(s): I10 - ESSENTIAL (PRIMARY) HYPERTENSION (4) BPH (benign prostatic hyperplasia) Assessment/Plan: Cont flomax Code(s): N40.0 - BENIGN PROSTATIC HYPERPLASIA WITHOUT LOWER URINRY TRACT SYMP (5) Parkinsons Assessment/Plan: Cont sinemet Code(s): G20 - PARKINSON'S DISEASE (6) Dementia Assessment/Plan: Start PT eval Code(s): F03.90 - UNSPECIFIED DEMENTIA WITHOUT BEHAVIORAL DISTURBANCE (7) HLD (hyperlipidemia) Assessment/Plan: Cont crestor/fenofibrate Code(s): E78.5 - HYPERLIPIDEMIA, UNSPECIFIED <Lisa Ryan - Last Filed: 07/11/17 20:47> Assessment/Plan patient found to have bactermia patient has been given vanco and zosyn also incidentally patient found to have high troponin cardio on case Problem List - Problems (1) Sepsis Code(s): A41.9 - SEPSIS, UNSPECIFIED ORGANISM (2) Elevated troponin Code(s): R74.8 - ABNORMAL LEVELS OF OTHER SERUM ENZYMES (3) HTN (hypertension) Code(s): I10 - ESSENTIAL (PRIMARY) HYPERTENSION (4) BPH (benign prostatic hyperplasia) Code(s): N40.0 - BENIGN PROSTATIC HYPERPLASIA WITHOUT LOWER URINRY TRACT SYMP (5) Parkinsons Code(s): G20 - PARKINSON'S DISEASE (6) Dementia Code(s): F03.90 - UNSPECIFIED DEMENTIA WITHOUT BEHAVIORAL DISTURBANCE (7) HLD (hyperlipidemia) Code(s): E78.5 - HYPERLIPIDEMIA, UNSPECIFIED 8 gm positive bacteremia plan will continue zosyn await identification of bacteria <Cheyenne Chin M - Last Filed: 07/11/17 22:11>
[2017-07-11] MEDS ORDERED: ROSUVASTATIN CA 10 MG TABLET (FP) ONE (20:45)
--- NOTE | 2017-07-11 20:46 | PN ---
Progress Note, Physician History of Present Illness: No new complaints - Current Medication List Current Medications: Active Medications Acetaminophen (Tylenol -) 650 mg PO Q4H PRN PRN Reason: FEVER OR PAIN Aspirin (Ecotrin -) 81 mg PO DAILY [facility] Last Admin: 07/11/17 09:19 Dose: 81 mg Carbidopa/Levodopa (Sinemet 25/100 -) 1 each PO TID [facility] Last Admin: 07/11/17 14:24 Dose: 1 each Fenofibric Acid (Trilipix -) 135 mg PO DAILY [facility] Last Admin: 07/11/17 09:19 Dose: 135 mg Heparin Sodium (Porcine) (Heparin -) 5,000 unit SQ BID [facility] Last Admin: 07/11/17 09:18 Dose: 5,000 unit Dextrose/Sodium Chloride (D5-1/2ns -) 1,000 mls @ 50 mls/hr IV ASDIR [facility] Last Admin: 07/11/17 05:57 Dose: 50 mls/hr Vancomycin HCl 1,000 mg/ (Dextrose) 250 mls @ 250 mls/hr IVPB BID [facility] PRN Reason: Protocol Piperacillin/Tazobactam/Dextrose (Zosyn 4.5gm Ivpb (Premix)) 100 mls @ 200 mls/ hr IVPB Q8H-IV [facility] PRN Reason: Protocol Last Admin: 07/11/17 17:43 Dose: 200 mls/hr Ondansetron HCl (Zofran Injection) 4 mg IVPB Q8H PRN PRN Reason: NAUSEA Rosuvastatin Calcium (Crestor -) 20 mg PO HS [facility] Last Admin: 07/10/17 21:09 Dose: 20 mg Tamsulosin HCl (Flomax -) 0.4 mg PO DAILY@0830 [facility] Last Admin: 07/11/17 09:19 Dose: 0.4 mg - Objective Vital Signs: Vital Signs Temperature 100 F H 07/11/17 17:15 Pulse Rate 85 07/11/17 17:15 Respiratory Rate 20 07/11/17 17:15 Blood Pressure 133/60 07/11/17 17:15 O2 Sat by Pulse Oximetry (%) 100 07/11/17 13:00 Constitutional: Yes: No Distress HENT: Yes: WNL Neck: Yes: WNL, Supple Cardiovascular: Yes: WNL, Regular Rate and Rhythm Respiratory: Yes: WNL, Regular, CTA Bilaterally Gastrointestinal: Yes: WNL, Normal Bowel Sounds, Soft Labs: CBC, BMP 07/11/17 06:50 07/11/17 06:50 INR, PTT INR Cancelled 07/09/17 21:15 Problem List - Problems (1) Sepsis Assessment/Plan: Bacteremia BC (+) strept pyogenes grp A Will hold antihypertensive meds in setting of sepsis Cont IV zosyn Cont IV vanco Code(s): A41.9 - SEPSIS, UNSPECIFIED ORGANISM (2) Elevated troponin Code(s): R74.8 - ABNORMAL LEVELS OF OTHER SERUM ENZYMES (3) HTN (hypertension) Code(s): I10 - ESSENTIAL (PRIMARY) HYPERTENSION (4) BPH (benign prostatic hyperplasia) Code(s): N40.0 - BENIGN PROSTATIC HYPERPLASIA WITHOUT LOWER URINRY TRACT SYMP (5) Parkinsons Code(s): G20 - PARKINSON'S DISEASE (6) Dementia Code(s): F03.90 - UNSPECIFIED DEMENTIA WITHOUT BEHAVIORAL DISTURBANCE (7) HLD (hyperlipidemia) Code(s): E78.5 - HYPERLIPIDEMIA, UNSPECIFIED
[2017-07-11] MEDS: ROSUVASTATIN CA 20 MG TABLET (FP) PO SCH (21:08)
[2017-07-12] MEDS ORDERED: PT OWN MED DRAWER 7, Y5N ONE ×2 (01:33→10:40)
[2017-07-12] MEDS: PIPERACILLIN/TAZOB 4.5 GM 100 ML IVPB SCH ×3 (01:34→17:51)
[2017-07-12] MEDS: CARBIDOPA/LEVODOPA 25/100 TABLET (FP) PO SCH ×3 (05:58→22:33)
[2017-07-12] MEDS: TAMSULOSIN HCL 0.4 MG CAP.ER.24H (FP) PO SCH (08:57)
--- NOTE | 2017-07-12 09:51 | PN ---
Progress Note, Physician Chief Complaint: alert eating breakfast, no acute complaints History of Present Illness: Strep pyogenes bacteremia - Current Medication List Current Medications: Active Medications Acetaminophen (Tylenol -) 650 mg PO Q4H PRN PRN Reason: FEVER OR PAIN Aspirin (Ecotrin -) 81 mg PO DAILY [facility] Last Admin: 07/11/17 09:19 Dose: 81 mg Carbidopa/Levodopa (Sinemet 25/100 -) 1 each PO TID [facility] Last Admin: 07/12/17 05:58 Dose: 1 each Fenofibric Acid (Trilipix -) 135 mg PO DAILY [facility] Last Admin: 07/11/17 09:19 Dose: 135 mg Heparin Sodium (Porcine) (Heparin -) 5,000 unit SQ BID [facility] Last Admin: 07/11/17 21:08 Dose: 5,000 unit Vancomycin HCl 1,000 mg/ (Dextrose) 250 mls @ 250 mls/hr IVPB BID [facility] PRN Reason: Protocol Piperacillin/Tazobactam/Dextrose (Zosyn 4.5gm Ivpb (Premix)) 100 mls @ 200 mls/ hr IVPB Q8H-IV [facility] PRN Reason: Protocol Last Admin: 07/12/17 01:34 Dose: 200 mls/hr Ondansetron HCl (Zofran Injection) 4 mg IVPB Q8H PRN PRN Reason: NAUSEA Rosuvastatin Calcium (Crestor -) 20 mg PO HS [facility] Last Admin: 07/11/17 21:08 Dose: 20 mg Tamsulosin HCl (Flomax -) 0.4 mg PO DAILY@0830 [facility] Last Admin: 07/12/17 08:57 Dose: 0.4 mg - Objective Vital Signs: Vital Signs Temperature 99.2 F 07/12/17 06:46 Pulse Rate 78 07/12/17 06:00 Respiratory Rate 20 07/12/17 06:00 Blood Pressure 140/89 07/12/17 06:46 O2 Sat by Pulse Oximetry (%) 99 07/11/17 22:00 Constitutional: Yes: No Distress Cardiovascular: Yes: Regular Rate and Rhythm Respiratory: Yes: CTA Bilaterally Edema: No Neurological: Yes: Alert, Oriented Labs: CBC, BMP 07/11/17 06:50 07/11/17 06:50 INR, PTT INR Cancelled 07/09/17 21:15 Assessment/Plan 87 year old man with a history of Parkinsons disease and dementia, HTN, CKD, mildly dilated asc aorta, BPH admitted with fever, chills, elevated wbc and incidentally noted to have a slightly elevated troponin and strep pyogenes bacteremia of unclear etiology. Elevated troponin: minimally elevated with normal CK level, did not significantly trend up -unlikely ACS, more likely trop elevated due to CKD and sepsis, gram + bacteremia -no ischemia on ekg -no ischemia on last nuclear stress test 2014 -Echo with normal LV function Sepsis/gram + bacteremia: unclear source -ID following on IV abx (Vanc and Zosyn) -serial cultures -TTE with no gross vegetation -will follow
[2017-07-12] MEDS: FENOFIBRIC ACID 135 MG CAP PO SCH (11:09)
[2017-07-12] MEDS: ASPIRIN COATED 81 MG TABLET.EC PO SCH (11:09)
[2017-07-12] MEDS: HEPARIN NA (PORCINE) 5,000 UNITS/ML 1ML VIAL SQ SCH ×2 (11:09→22:31)
[2017-07-12 12:28] LABS: TROPONIN I 0.05 ng/ml (0.00-0.05)
--- NOTE | 2017-07-12 13:06 | PN ---
Progress Note, Physician History of Present Illness: patient doing much better son in the room looks liek patient back to baseline no other events - Current Medication List Current Medications: Active Medications Acetaminophen (Tylenol -) 650 mg PO Q4H PRN PRN Reason: FEVER OR PAIN Aspirin (Ecotrin -) 81 mg PO DAILY [facility] Last Admin: 07/12/17 11:09 Dose: 81 mg Carbidopa/Levodopa (Sinemet 25/100 -) 1 each PO TID [facility] Last Admin: 07/12/17 05:58 Dose: 1 each Fenofibric Acid (Trilipix -) 135 mg PO DAILY [facility] Last Admin: 07/12/17 11:09 Dose: 135 mg Heparin Sodium (Porcine) (Heparin -) 5,000 unit SQ BID [facility] Last Admin: 07/12/17 11:09 Dose: 5,000 unit Vancomycin HCl 1,000 mg/ (Dextrose) 250 mls @ 250 mls/hr IVPB BID [facility] PRN Reason: Protocol Piperacillin/Tazobactam/Dextrose (Zosyn 4.5gm Ivpb (Premix)) 100 mls @ 200 mls/ hr IVPB Q8H-IV [facility] PRN Reason: Protocol Last Admin: 07/12/17 11:08 Dose: 200 mls/hr Ondansetron HCl (Zofran Injection) 4 mg IVPB Q8H PRN PRN Reason: NAUSEA Rosuvastatin Calcium (Crestor -) 20 mg PO HS [facility] Last Admin: 07/11/17 21:08 Dose: 20 mg Tamsulosin HCl (Flomax -) 0.4 mg PO DAILY@0830 [facility] Last Admin: 07/12/17 08:57 Dose: 0.4 mg - Objective Vital Signs: Vital Signs Temperature 99.2 F 07/12/17 06:46 Pulse Rate 78 07/12/17 06:00 Respiratory Rate 20 07/12/17 06:00 Blood Pressure 140/89 07/12/17 06:46 O2 Sat by Pulse Oximetry (%) 99 07/11/17 22:00 Constitutional: Yes: No Distress, Calm Cardiovascular: Yes: Regular Rate and Rhythm Respiratory: Yes: Regular, CTA Bilaterally Gastrointestinal: Yes: Normal Bowel Sounds, Soft Musculoskeletal: Yes: WNL Extremities: Yes: WNL Labs: CBC, BMP 07/11/17 06:50 07/11/17 06:50 INR, PTT INR Cancelled 07/09/17 21:15 Assessment/Plan patient found to have bactermia patient has been given vanco and zosyn also incidentally patient found to have high troponin cardio on case Problem List - Problems (1) Sepsis Code(s): A41.9 - SEPSIS, UNSPECIFIED ORGANISM (2) Elevated troponin Code(s): R74.8 - ABNORMAL LEVELS OF OTHER SERUM ENZYMES (3) HTN (hypertension) Code(s): I10 - ESSENTIAL (PRIMARY) HYPERTENSION (4) BPH (benign prostatic hyperplasia) Code(s): N40.0 - BENIGN PROSTATIC HYPERPLASIA WITHOUT LOWER URINRY TRACT SYMP (5) Parkinsons Code(s): G20 - PARKINSON'S DISEASE (6) Dementia Code(s): F03.90 - UNSPECIFIED DEMENTIA WITHOUT BEHAVIORAL DISTURBANCE (7) HLD (hyperlipidemia) Code(s): E78.5 - HYPERLIPIDEMIA, UNSPECIFIED 8 gm positive bacteremia plan continue abx tte negative will recheck blood cx rest as per primary
[2017-07-12] MEDS: VANCOMYCIN 1,000 MG in DEXTROSE 5%-WATER - 250 ML IVPB SCH ×3 (17:31→19:45)
[2017-07-12] MEDS: ROSUVASTATIN CA 20 MG TABLET (FP) PO SCH (22:31)
--- NOTE | 2017-07-12 23:44 | PN ---
Progress Note, Physician History of Present Illness: No new complaints - Current Medication List Current Medications: Active Medications Acetaminophen (Tylenol -) 650 mg PO Q4H PRN PRN Reason: FEVER OR PAIN Aspirin (Ecotrin -) 81 mg PO DAILY [facility] Last Admin: 07/12/17 11:09 Dose: 81 mg Carbidopa/Levodopa (Sinemet 25/100 -) 1 each PO TID [facility] Last Admin: 07/12/17 22:33 Dose: 1 each Fenofibric Acid (Trilipix -) 135 mg PO DAILY [facility] Last Admin: 07/12/17 11:09 Dose: 135 mg Heparin Sodium (Porcine) (Heparin -) 5,000 unit SQ BID [facility] Last Admin: 07/12/17 22:31 Dose: 5,000 unit Piperacillin/Tazobactam/Dextrose (Zosyn 4.5gm Ivpb (Premix)) 100 mls @ 200 mls/ hr IVPB Q8H-IV [facility] PRN Reason: Protocol Last Admin: 07/12/17 17:51 Dose: 200 mls/hr Ondansetron HCl (Zofran Injection) 4 mg IVPB Q8H PRN PRN Reason: NAUSEA Rosuvastatin Calcium (Crestor -) 20 mg PO HS [facility] Last Admin: 07/12/17 22:31 Dose: 20 mg Tamsulosin HCl (Flomax -) 0.4 mg PO DAILY@0830 [facility] Last Admin: 07/12/17 08:57 Dose: 0.4 mg - Objective Vital Signs: Vital Signs Temperature 99.6 F 07/12/17 16:55 Pulse Rate 96 H 07/12/17 16:55 Respiratory Rate 20 07/12/17 16:55 Blood Pressure 126/91 07/12/17 16:55 O2 Sat by Pulse Oximetry (%) 98 07/12/17 10:00 Constitutional: Yes: No Distress Neck: Yes: WNL, Supple Cardiovascular: Yes: WNL, Regular Rate and Rhythm Respiratory: Yes: WNL, Regular, CTA Bilaterally Gastrointestinal: Yes: WNL, Normal Bowel Sounds, Soft Extremities: Yes: WNL Labs: CBC, BMP 07/11/17 06:50 07/11/17 06:50 INR, PTT INR Cancelled 07/09/17 21:15 Problem List - Problems (1) Sepsis Assessment/Plan: Bacteremia BC (+) strept pyogenes grp A Will hold antihypertensive meds in setting of sepsis Cont IV zosyn Cont IV vanco Code(s): A41.9 - SEPSIS, UNSPECIFIED ORGANISM (2) Elevated troponin Assessment/Plan: Due to sepsis Echo within normal limits Code(s): R74.8 - ABNORMAL LEVELS OF OTHER SERUM ENZYMES (3) HTN (hypertension) Assessment/Plan: BP stable Code(s): I10 - ESSENTIAL (PRIMARY) HYPERTENSION (4) BPH (benign prostatic hyperplasia) Assessment/Plan: Cont flomax Code(s): N40.0 - BENIGN PROSTATIC HYPERPLASIA WITHOUT LOWER URINRY TRACT SYMP (5) Parkinsons Assessment/Plan: Cont sinemet Code(s): G20 - PARKINSON'S DISEASE (6) Dementia Code(s): F03.90 - UNSPECIFIED DEMENTIA WITHOUT BEHAVIORAL DISTURBANCE (7) HLD (hyperlipidemia) Code(s): E78.5 - HYPERLIPIDEMIA, UNSPECIFIED
[2017-07-13] MEDS ORDERED: PT OWN MED DRAWER 7, Y5N ONE ×6 (01:49→21:09)
[2017-07-13] MEDS: PIPERACILLIN/TAZOB 4.5 GM 100 ML IVPB SCH ×2 (02:00→09:57)
[2017-07-13] MEDS: CARBIDOPA/LEVODOPA 25/100 TABLET (FP) PO SCH ×3 (05:37→21:14)
[2017-07-13] MEDS: TAMSULOSIN HCL 0.4 MG CAP.ER.24H (FP) PO SCH (08:40)
[2017-07-13 08:54] LABS: BASOPHIL 0.8 % (0-2.0); EOSINOPHIL 7.5 % (0-4.5); MCH 25.6 pg (25.7-33.7); MCHC 32.3 g/dl (32.0-35.9); MEAN CELL VOLUME 79.2 fl (80-96); MEAN PLT VOLUME 8.2 fl (7.5-11.1); NEUTROPHILS 65.7 % (42.8-82.8); PLATELET COUNT 309 K/MM3 (134-434); RDW 16.3 % (11.9-15.9); WHITE BLOOD COUNT 5.6 K/mm3 (4.0-10.0)
--- NOTE | 2017-07-13 08:59 | PN ---
Progress Note, Physician History of Present Illness: seen and examined today in [facility]. sitting on side of bed, eating breakfast. b/l hand tremor noted. history limited by language barrier. no reported overnight events or new complaints. - Current Medication List Current Medications: Active Medications Acetaminophen (Tylenol -) 650 mg PO Q4H PRN PRN Reason: FEVER OR PAIN Aspirin (Ecotrin -) 81 mg PO DAILY [facility] Last Admin: 07/12/17 11:09 Dose: 81 mg Carbidopa/Levodopa (Sinemet 25/100 -) 1 each PO TID [facility] Last Admin: 07/13/17 05:37 Dose: 1 each Fenofibric Acid (Trilipix -) 135 mg PO DAILY [facility] Last Admin: 07/12/17 11:09 Dose: 135 mg Heparin Sodium (Porcine) (Heparin -) 5,000 unit SQ BID [facility] Last Admin: 07/12/17 22:31 Dose: 5,000 unit Piperacillin/Tazobactam/Dextrose (Zosyn 4.5gm Ivpb (Premix)) 100 mls @ 200 mls/ hr IVPB Q8H-IV [facility] PRN Reason: Protocol Last Admin: 07/13/17 02:00 Dose: 200 mls/hr Ondansetron HCl (Zofran Injection) 4 mg IVPB Q8H PRN PRN Reason: NAUSEA Rosuvastatin Calcium (Crestor -) 20 mg PO HS [facility] Last Admin: 07/12/17 22:31 Dose: 20 mg Tamsulosin HCl (Flomax -) 0.4 mg PO DAILY@0830 [facility] Last Admin: 07/13/17 08:40 Dose: 0.4 mg - Objective Vital Signs: Vital Signs Temperature 98.2 F 07/13/17 06:14 Pulse Rate 79 07/13/17 06:14 Respiratory Rate 20 07/13/17 06:14 Blood Pressure 155/87 07/13/17 06:14 O2 Sat by Pulse Oximetry (%) 97 07/12/17 22:00 Constitutional: Yes: No Distress, Calm Eyes: Yes: Conjunctiva Clear, EOM Intact, PERRL HENT: Yes: Atraumatic, Normocephalic Neck: Yes: Supple, Trachea Midline Cardiovascular: Yes: Regular Rate and Rhythm, S1, S2. No: Bradycardia, Tachycardia, Pulse Irregular, Bruit, JVD, Gallop, Murmur, Rub, S3, S4, Varicosities Respiratory: Yes: Regular, CTA Bilaterally. No: Rales, Rhonchi, SOB, Wheezes Gastrointestinal: Yes: Normal Bowel Sounds, Soft. No: Distention, Tenderness Edema: No Peripheral Pulses WNL: Yes Peripheral Pulses: Left Doralis Pedis: 2+, Right Dorsalis Pedis: 2+ Neurological: Yes: Alert Psychiatric: Yes: Alert Labs: INR, PTT INR Cancelled 07/09/17 21:15 - ....Imaging Chest X-ray: Report Reviewed, Image Reviewed EKG: Report Reviewed, Image Reviewed Other: Report Reviewed, Image Reviewed Assessment/Plan 87 year old man with a history of Parkinsons disease and dementia, HTN, CKD, mildly dilated asc aorta, BPH admitted with fever, chills, elevated wbc and incidentally noted to have a slightly elevated troponin and strep pyogenes bacteremia of unclear etiology. Elevated troponin: minimally elevated with normal CK level, did not significantly trend up -unlikely ACS, more likely trop elevated due to CKD and sepsis, trop trended down to normal -strep pyogenes bacteremia -no ischemia on ekg -no ischemia on last nuclear stress test 2014 -Echo showed normal LV function no significant valvular abnl -cont asa and statin -holding bblocker for now in setting of sepsis Sepsis-strep pyogenes bacteremia: unclear source -ID following, pt on Zosyn -initial blood cutlures showed strep pyogenes -repeat blood cultures pending -TTE with no gross vegetation -will discuss with ID and with family if benefit of DAWIT to evaluate for endocarditis as no source has yet been identified
[2017-07-13 09:35] LABS: ALK PHOS 46 U/L (45-117); ANION GAP 7 (8-16); BILIRUBIN,TOTAL 0.5 mg/dL (0.2-1.0); CALCIUM 9.1 mg/dL (8.5-10.1); CO2 27 mmol/L (21-32); CREATININE 1.4 mg/dL (0.7-1.3); GLUCOSE,RANDOM 93 mg/dL (74-106); SGOT/AST 22 U/L (15-37); SGPT/ALT 6 U/L (12-78); TOT PROT 6.3 g/dl (6.4-8.2)
[2017-07-13] MEDS: ASPIRIN COATED 81 MG TABLET.EC PO SCH (09:57)
[2017-07-13] MEDS: HEPARIN NA (PORCINE) 5,000 UNITS/ML 1ML VIAL SQ SCH ×2 (09:57→21:14)
[2017-07-13] MEDS: FENOFIBRIC ACID 135 MG CAP PO SCH (09:57)
--- NOTE | 2017-07-13 13:49 | PN ---
Progress Note, Physician History of Present Illness: patient stable doing well no issues remaining afebrile - Current Medication List Current Medications: Active Medications Acetaminophen (Tylenol -) 650 mg PO Q4H PRN PRN Reason: FEVER OR PAIN Last Admin: 07/13/17 10:05 Dose: 650 mg Aspirin (Ecotrin -) 81 mg PO DAILY [facility] Last Admin: 07/13/17 09:57 Dose: 81 mg Carbidopa/Levodopa (Sinemet 25/100 -) 1 each PO TID [facility] Last Admin: 07/13/17 05:37 Dose: 1 each Fenofibric Acid (Trilipix -) 135 mg PO DAILY [facility] Last Admin: 07/13/17 09:57 Dose: 135 mg Heparin Sodium (Porcine) (Heparin -) 5,000 unit SQ BID [facility] Last Admin: 07/13/17 09:57 Dose: 5,000 unit Piperacillin/Tazobactam/Dextrose (Zosyn 4.5gm Ivpb (Premix)) 100 mls @ 200 mls/ hr IVPB Q8H-IV [facility] PRN Reason: Protocol Last Admin: 07/13/17 09:57 Dose: 200 mls/hr Ondansetron HCl (Zofran Injection) 4 mg IVPB Q8H PRN PRN Reason: NAUSEA Rosuvastatin Calcium (Crestor -) 20 mg PO HS [facility] Last Admin: 07/12/17 22:31 Dose: 20 mg Tamsulosin HCl (Flomax -) 0.4 mg PO DAILY@0830 [facility] Last Admin: 07/13/17 08:40 Dose: 0.4 mg - Objective Vital Signs: Vital Signs Temperature 98.2 F 07/13/17 06:14 Pulse Rate 79 07/13/17 06:14 Respiratory Rate 20 07/13/17 06:14 Blood Pressure 155/87 07/13/17 06:14 O2 Sat by Pulse Oximetry (%) 98 07/13/17 10:00 Constitutional: Yes: No Distress, Calm Neck: Yes: Supple Cardiovascular: Yes: Regular Rate and Rhythm Respiratory: Yes: Regular, CTA Bilaterally Gastrointestinal: Yes: Normal Bowel Sounds, Soft Musculoskeletal: Yes: Other Extremities: Yes: Other Neurological: Yes: Alert, Oriented Psychiatric: Yes: Alert, Oriented Labs: CBC, BMP 07/13/17 06:00 07/13/17 06:00 INR, PTT INR Cancelled 07/09/17 21:15 Assessment/Plan patient found to have bactermia patient has been given vanco and zosyn also incidentally patient found to have high troponin cardio on case Problem List - Problems (1) Sepsis Code(s): A41.9 - SEPSIS, UNSPECIFIED ORGANISM (2) Elevated troponin Code(s): R74.8 - ABNORMAL LEVELS OF OTHER SERUM ENZYMES (3) HTN (hypertension) Code(s): I10 - ESSENTIAL (PRIMARY) HYPERTENSION (4) BPH (benign prostatic hyperplasia) Code(s): N40.0 - BENIGN PROSTATIC HYPERPLASIA WITHOUT LOWER URINRY TRACT SYMP (5) Parkinsons Code(s): G20 - PARKINSON'S DISEASE (6) Dementia Code(s): F03.90 - UNSPECIFIED DEMENTIA WITHOUT BEHAVIORAL DISTURBANCE (7) HLD (hyperlipidemia) Code(s): E78.5 - HYPERLIPIDEMIA, UNSPECIFIED 8 gm positive bacteremia plan continue abx awaiting blood cx reports cardio on case rest as per primary
[2017-07-13] MEDS: PIPERACILLIN/TAZOB 2.25 GM 50 ML IVPB SCH ×2 (16:01→20:10)
[2017-07-13] MEDS: ROSUVASTATIN CA 20 MG TABLET (FP) PO SCH (21:14)
--- NOTE | 2017-07-13 21:20 | PN ---
Progress Note, Physician History of Present Illness: No new complaints - Current Medication List Current Medications: Active Medications Acetaminophen (Tylenol -) 650 mg PO Q4H PRN PRN Reason: FEVER OR PAIN Last Admin: 07/13/17 10:05 Dose: 650 mg Aspirin (Ecotrin -) 81 mg PO DAILY [facility] Last Admin: 07/13/17 09:57 Dose: 81 mg Carbidopa/Levodopa (Sinemet 25/100 -) 1 each PO TID [facility] Last Admin: 07/13/17 21:14 Dose: 1 each Fenofibric Acid (Trilipix -) 135 mg PO DAILY [facility] Last Admin: 07/13/17 09:57 Dose: 135 mg Heparin Sodium (Porcine) (Heparin -) 5,000 unit SQ BID [facility] Last Admin: 07/13/17 21:14 Dose: 5,000 unit Piperacillin/Tazobactam/Dextrose (Zosyn 2.25gm Ivpb (Premix)) 50 mls @ 100 mls/ hr IVPB Q6H-IV [facility] PRN Reason: Protocol Last Admin: 07/13/17 20:10 Dose: 100 mls/hr Ondansetron HCl (Zofran Injection) 4 mg IVPB Q8H PRN PRN Reason: NAUSEA Rosuvastatin Calcium (Crestor -) 20 mg PO HS [facility] Last Admin: 07/13/17 21:14 Dose: 20 mg Tamsulosin HCl (Flomax -) 0.4 mg PO DAILY@0830 [facility] Last Admin: 07/13/17 08:40 Dose: 0.4 mg - Objective Vital Signs: Vital Signs Temperature 98.7 F 07/13/17 17:03 Pulse Rate 87 07/13/17 17:03 Respiratory Rate 20 07/13/17 17:03 Blood Pressure 146/84 07/13/17 17:03 O2 Sat by Pulse Oximetry (%) 98 07/13/17 10:00 Constitutional: Yes: No Distress Neck: Yes: WNL, Supple Cardiovascular: Yes: WNL, Regular Rate and Rhythm Respiratory: Yes: WNL, Regular, CTA Bilaterally Gastrointestinal: Yes: WNL, Normal Bowel Sounds, Soft Labs: CBC, BMP 07/13/17 06:00 07/13/17 06:00 INR, PTT INR Cancelled 07/09/17 21:15 Problem List - Problems (1) Sepsis Assessment/Plan: Bacteremia BC (+) strept pyogenes grp A Repeat BC pending Cont IV zosyn Cont IV vanco Possible DAWIT in am as per cardio Code(s): A41.9 - SEPSIS, UNSPECIFIED ORGANISM (2) Elevated troponin Assessment/Plan: Due to sepsis Echo within normal limits Code(s): R74.8 - ABNORMAL LEVELS OF OTHER SERUM ENZYMES (3) HTN (hypertension) Assessment/Plan: BP stable Code(s): I10 - ESSENTIAL (PRIMARY) HYPERTENSION (4) BPH (benign prostatic hyperplasia) Code(s): N40.0 - BENIGN PROSTATIC HYPERPLASIA WITHOUT LOWER URINRY TRACT SYMP (5) Parkinsons Code(s): G20 - PARKINSON'S DISEASE (6) Dementia Code(s): F03.90 - UNSPECIFIED DEMENTIA WITHOUT BEHAVIORAL DISTURBANCE (7) HLD (hyperlipidemia) Code(s): E78.5 - HYPERLIPIDEMIA, UNSPECIFIED
[2017-07-14] MEDS: PIPERACILLIN/TAZOB 2.25 GM 50 ML IVPB SCH ×4 (03:02→21:18)
[2017-07-14] MEDS ORDERED: PT OWN MED DRAWER 7, Y5N ONE ×3 (06:17→20:20)
[2017-07-14] MEDS: CARBIDOPA/LEVODOPA 25/100 TABLET (FP) PO SCH ×3 (06:34→21:18)
--- NOTE | 2017-07-14 08:30 | PN ---
Progress Note (short form) - Note Progress Note: Called and discussed yesterdays blood cultures with microbiology. it has not yet been reported but the result has shown no growth in 24 hours. therefore it appears cultures have cleared as of now. Will cancel DAWIT today as per my discussion yesterday with ID. If cultures again become positive will reschedule DAWIT for next week.
--- NOTE | 2017-07-14 08:39 | PN ---
Progress Note, Physician - Current Medication List Current Medications: Active Medications Acetaminophen (Tylenol -) 650 mg PO Q4H PRN PRN Reason: FEVER OR PAIN Last Admin: 07/13/17 10:05 Dose: 650 mg Aspirin (Ecotrin -) 81 mg PO DAILY [facility] Last Admin: 07/13/17 09:57 Dose: 81 mg Carbidopa/Levodopa (Sinemet 25/100 -) 1 each PO TID [facility] Last Admin: 07/14/17 06:34 Dose: 1 each Fenofibric Acid (Trilipix -) 135 mg PO DAILY [facility] Last Admin: 07/13/17 09:57 Dose: 135 mg Heparin Sodium (Porcine) (Heparin -) 5,000 unit SQ BID [facility] Last Admin: 07/13/17 21:14 Dose: 5,000 unit Piperacillin/Tazobactam/Dextrose (Zosyn 2.25gm Ivpb (Premix)) 50 mls @ 100 mls/ hr IVPB Q6H-IV [facility] PRN Reason: Protocol Last Admin: 07/14/17 03:02 Dose: 100 mls/hr Ondansetron HCl (Zofran Injection) 4 mg IVPB Q8H PRN PRN Reason: NAUSEA Rosuvastatin Calcium (Crestor -) 20 mg PO HS [facility] Last Admin: 07/13/17 21:14 Dose: 20 mg Tamsulosin HCl (Flomax -) 0.4 mg PO DAILY@0830 [facility] Last Admin: 07/13/17 08:40 Dose: 0.4 mg - Objective Vital Signs: Vital Signs Temperature 97.4 F L 07/14/17 06:00 Pulse Rate 83 07/14/17 06:00 Respiratory Rate 18 07/14/17 06:00 Blood Pressure 170/100 07/14/17 07:52 O2 Sat by Pulse Oximetry (%) 98 07/13/17 22:00 Labs: INR, PTT INR Cancelled 07/09/17 21:15
[2017-07-14 08:44] LABS: BASOPHIL 0.8 % (0-2.0); EOSINOPHIL 12.9 % (0-4.5); MCH 25.5 pg (25.7-33.7); MCHC 32.7 g/dl (32.0-35.9); MEAN CELL VOLUME 77.9 fl (80-96); NEUTROPHILS 57.8 % (42.8-82.8); PLATELET COUNT 310 K/MM3 (134-434); WHITE BLOOD COUNT 4.6 K/mm3 (4.0-10.0)
[2017-07-14] MEDS: TAMSULOSIN HCL 0.4 MG CAP.ER.24H (FP) PO SCH (08:53)
[2017-07-14] MEDS: METOPROLOL SUCCINATE 50 MG TAB.SR.24H (FP) PO SCH ×2 (08:54→10:40)
[2017-07-14] MEDS: amLODIPine BESYLATE 10 MG TABLET (FP) PO SCH ×2 (08:54→10:40)
[2017-07-14 09:05] LABS: ALK PHOS 48 U/L (45-117); ANION GAP 6 (8-16); BILIRUBIN,TOTAL 0.7 mg/dL (0.2-1.0); CALCIUM 8.9 mg/dL (8.5-10.1); CO2 30 mmol/L (21-32); CREATININE 1.4 mg/dL (0.7-1.3); GLUCOSE,RANDOM 94 mg/dL (74-106); SGOT/AST 26 U/L (15-37); SGPT/ALT 9 U/L (12-78); TOT PROT 6.6 g/dl (6.4-8.2)
[2017-07-14] MEDS ORDERED: PROPOFOL 20 ML ONE (10:37)
[2017-07-14] MEDS ORDERED: ETOMIDATE 20 MG/10 ML AMPUL IVPUSH ONE (10:37)
--- NOTE | 2017-07-14 11:47 | PN ---
Progress Note (short form) - Note Progress Note: DAWIT was performed. Full report to follow. Pt tolerated procedure well. There were no complications. No vegetations seen, no evidence of endocarditis. Tricuspid, aortic, and mitral valves were well visualized. Pulmonic valve not well visualized but grossly normal. 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 Can check gag reflex when pt returns to floor and if positive, previous diet can be resumed 2 hours post procedure.
--- NOTE | 2017-07-14 14:17 | PN ---
Progress Note, Physician History of Present Illness: stable doing well no issues - Current Medication List Current Medications: Active Medications Acetaminophen (Tylenol -) 650 mg PO Q4H PRN PRN Reason: FEVER OR PAIN Last Admin: 07/13/17 10:05 Dose: 650 mg Amlodipine Besylate (Norvasc -) 10 mg PO DAILY [facility] Last Admin: 07/14/17 10:40 Dose: Not Given Aspirin (Ecotrin -) 81 mg PO DAILY [facility] Last Admin: 07/13/17 09:57 Dose: 81 mg Carbidopa/Levodopa (Sinemet 25/100 -) 1 each PO TID [facility] Last Admin: 07/14/17 06:34 Dose: 1 each Fenofibric Acid (Trilipix -) 135 mg PO DAILY [facility] Last Admin: 07/13/17 09:57 Dose: 135 mg Heparin Sodium (Porcine) (Heparin -) 5,000 unit SQ BID [facility] Last Admin: 07/13/17 21:14 Dose: 5,000 unit Piperacillin/Tazobactam/Dextrose (Zosyn 2.25gm Ivpb (Premix)) 50 mls @ 100 mls/ hr IVPB Q6H-IV [facility] PRN Reason: Protocol Last Admin: 07/14/17 09:08 Dose: 100 mls/hr Metoprolol Succinate (Toprol Xl -) 50 mg PO DAILY [facility] Last Admin: 07/14/17 10:40 Dose: Not Given Ondansetron HCl (Zofran Injection) 4 mg IVPB Q8H PRN PRN Reason: NAUSEA Rosuvastatin Calcium (Crestor -) 20 mg PO HS [facility] Last Admin: 07/13/17 21:14 Dose: 20 mg Tamsulosin HCl (Flomax -) 0.4 mg PO DAILY@0830 [facility] Last Admin: 07/14/17 08:53 Dose: 0.4 mg - Objective Vital Signs: Vital Signs Temperature 97.3 F L 07/14/17 11:52 Pulse Rate 64 07/14/17 11:52 Respiratory Rate 20 07/14/17 11:52 Blood Pressure 119/69 07/14/17 11:52 O2 Sat by Pulse Oximetry (%) 98 07/14/17 11:52 Constitutional: Yes: No Distress, Calm Neck: Yes: Supple, Trachea Midline Respiratory: Yes: Regular, CTA Bilaterally Musculoskeletal: Yes: WNL Extremities: Yes: WNL Neurological: Yes: Alert, Oriented Psychiatric: Yes: Alert, Oriented Labs: CBC, BMP 07/14/17 06:00 07/14/17 06:00 INR, PTT INR Cancelled 07/09/17 21:15 Assessment/Plan patient found to have bactermia patient has been given vanco and zosyn also incidentally patient found to have high troponin cardio on case Problem List - Problems (1) Sepsis Code(s): A41.9 - SEPSIS, UNSPECIFIED ORGANISM (2) Elevated troponin Code(s): R74.8 - ABNORMAL LEVELS OF OTHER SERUM ENZYMES (3) HTN (hypertension) Code(s): I10 - ESSENTIAL (PRIMARY) HYPERTENSION (4) BPH (benign prostatic hyperplasia) Code(s): N40.0 - BENIGN PROSTATIC HYPERPLASIA WITHOUT LOWER URINRY TRACT SYMP (5) Parkinsons Code(s): G20 - PARKINSON'S DISEASE (6) Dementia Code(s): F03.90 - UNSPECIFIED DEMENTIA WITHOUT BEHAVIORAL DISTURBANCE (7) HLD (hyperlipidemia) Code(s): E78.5 - HYPERLIPIDEMIA, UNSPECIFIED 8 gm positive bacteremia plan continue abx will deescalate tomorrow jasmin result noted rest as per primary
[2017-07-14] MEDS: ASPIRIN COATED 81 MG TABLET.EC PO SCH (14:24)
[2017-07-14] MEDS: HEPARIN NA (PORCINE) 5,000 UNITS/ML 1ML VIAL SQ SCH ×2 (14:24→21:18)
[2017-07-14] MEDS: FENOFIBRIC ACID 135 MG CAP PO SCH (14:24)
[2017-07-14] MEDS ORDERED: ROSUVASTATIN CA 10 MG TABLET (FP) ONE (20:19)
[2017-07-14] MEDS: ROSUVASTATIN CA 20 MG TABLET (FP) PO SCH (21:18)
--- NOTE | 2017-07-14 21:44 | PN ---
Progress Note, Physician History of Present Illness: Pt tolerated DAWIT - Current Medication List Current Medications: Active Medications Acetaminophen (Tylenol -) 650 mg PO Q4H PRN PRN Reason: FEVER OR PAIN Last Admin: 07/13/17 10:05 Dose: 650 mg Amlodipine Besylate (Norvasc -) 10 mg PO DAILY [facility] Last Admin: 07/14/17 10:40 Dose: Not Given Aspirin (Ecotrin -) 81 mg PO DAILY [facility] Last Admin: 07/14/17 14:24 Dose: 81 mg Carbidopa/Levodopa (Sinemet 25/100 -) 1 each PO TID [facility] Last Admin: 07/14/17 21:18 Dose: 1 each Fenofibric Acid (Trilipix -) 135 mg PO DAILY [facility] Last Admin: 07/14/17 14:24 Dose: Not Given Heparin Sodium (Porcine) (Heparin -) 5,000 unit SQ BID [facility] Last Admin: 07/14/17 21:18 Dose: 5,000 unit Piperacillin/Tazobactam/Dextrose (Zosyn 2.25gm Ivpb (Premix)) 50 mls @ 100 mls/ hr IVPB Q6H-IV [facility] PRN Reason: Protocol Last Admin: 07/14/17 21:18 Dose: 100 mls/hr Metoprolol Succinate (Toprol Xl -) 50 mg PO DAILY [facility] Last Admin: 07/14/17 10:40 Dose: Not Given Ondansetron HCl (Zofran Injection) 4 mg IVPB Q8H PRN PRN Reason: NAUSEA Rosuvastatin Calcium (Crestor -) 20 mg PO HS [facility] Last Admin: 07/14/17 21:18 Dose: 20 mg Tamsulosin HCl (Flomax -) 0.4 mg PO DAILY@0830 [facility] Last Admin: 07/14/17 08:53 Dose: 0.4 mg - Objective Vital Signs: Vital Signs Temperature 97.8 F 07/14/17 17:04 Pulse Rate 85 07/14/17 17:04 Respiratory Rate 20 07/14/17 17:04 Blood Pressure 146/91 07/14/17 17:04 O2 Sat by Pulse Oximetry (%) 98 07/14/17 11:52 Constitutional: Yes: No Distress HENT: Yes: WNL Neck: Yes: WNL, Supple Cardiovascular: Yes: WNL, Regular Rate and Rhythm Respiratory: Yes: WNL, Regular, CTA Bilaterally Gastrointestinal: Yes: WNL, Normal Bowel Sounds, Soft Edema: No Labs: CBC, BMP 07/14/17 06:00 07/14/17 06:00 INR, PTT INR Cancelled 07/09/17 21:15 Problem List - Problems (1) Sepsis Assessment/Plan: Bacteremia BC (+) strept pyogenes grp A Repeat BC pending Cont IV zosyn Cont IV vanco DAWIT done and no vegetations noted As per ID Code(s): A41.9 - SEPSIS, UNSPECIFIED ORGANISM (2) Elevated troponin Assessment/Plan: Due to sepsis Echo within normal limits Code(s): R74.8 - ABNORMAL LEVELS OF OTHER SERUM ENZYMES (3) HTN (hypertension) Assessment/Plan: BP stable Code(s): I10 - ESSENTIAL (PRIMARY) HYPERTENSION (4) BPH (benign prostatic hyperplasia) Code(s): N40.0 - BENIGN PROSTATIC HYPERPLASIA WITHOUT LOWER URINRY TRACT SYMP (5) Parkinsons Code(s): G20 - PARKINSON'S DISEASE (6) Dementia Code(s): F03.90 - UNSPECIFIED DEMENTIA WITHOUT BEHAVIORAL DISTURBANCE (7) HLD (hyperlipidemia) Code(s): E78.5 - HYPERLIPIDEMIA, UNSPECIFIED
[2017-07-15] MEDS: PIPERACILLIN/TAZOB 2.25 GM 50 ML IVPB SCH ×4 (02:33→19:59)
[2017-07-15] MEDS: CARBIDOPA/LEVODOPA 25/100 TABLET (FP) PO SCH ×3 (05:51→21:45)
[2017-07-15] MEDS: TAMSULOSIN HCL 0.4 MG CAP.ER.24H (FP) PO SCH (08:22)
[2017-07-15] MEDS ORDERED: PT OWN MED DRAWER 7, Y5N ONE ×2 (09:47→21:44)
[2017-07-15] MEDS: amLODIPine BESYLATE 10 MG TABLET (FP) PO SCH (09:49)
[2017-07-15] MEDS: ASPIRIN COATED 81 MG TABLET.EC PO SCH (09:49)
[2017-07-15] MEDS: METOPROLOL SUCCINATE 50 MG TAB.SR.24H (FP) PO SCH (09:50)
[2017-07-15] MEDS: HEPARIN NA (PORCINE) 5,000 UNITS/ML 1ML VIAL SQ SCH ×2 (09:50→21:45)
[2017-07-15] MEDS: FENOFIBRIC ACID 135 MG CAP PO SCH (09:50)
--- NOTE | 2017-07-15 12:14 | PN ---
Progress Note, Physician Chief Complaint: Pt is disoriented to place, person. Knows it is June Denies chest pain or pain in the throat (s/p DAWIT yesterday). History of Present Illness: The patient is an 87M with a PMH of parkinson's disease, dememtia, and HTN who presents to the ED via EMS with family. The son is at bedside and is translating. The son states that the patient was in normal health when he went to the restroom and was found by family to be shaking, and vomiting in the toilet. The son states that they had to hold him up while he was shaking. This has never happened before. The patient has no complaints and the son states that the patient had no complaints prior to this episode. The patient is demented and does not provide any history. - Current Medication List Current Medications: Active Medications Acetaminophen (Tylenol -) 650 mg PO Q4H PRN PRN Reason: FEVER OR PAIN Last Admin: 07/13/17 10:05 Dose: 650 mg Amlodipine Besylate (Norvasc -) 10 mg PO DAILY [facility] Last Admin: 07/15/17 09:49 Dose: 10 mg Aspirin (Ecotrin -) 81 mg PO DAILY [facility] Last Admin: 07/15/17 09:49 Dose: 81 mg Carbidopa/Levodopa (Sinemet 25/100 -) 1 each PO TID [facility] Last Admin: 07/15/17 05:51 Dose: 1 each Fenofibric Acid (Trilipix -) 135 mg PO DAILY [facility] Last Admin: 07/15/17 09:50 Dose: 135 mg Heparin Sodium (Porcine) (Heparin -) 5,000 unit SQ BID [facility] Last Admin: 07/15/17 09:50 Dose: 5,000 unit Piperacillin/Tazobactam/Dextrose (Zosyn 2.25gm Ivpb (Premix)) 50 mls @ 100 mls/ hr IVPB Q6H-IV [facility] PRN Reason: Protocol Last Admin: 07/15/17 09:50 Dose: 100 mls/hr Metoprolol Succinate (Toprol Xl -) 50 mg PO DAILY [facility] Last Admin: 07/15/17 09:50 Dose: 50 mg Ondansetron HCl (Zofran Injection) 4 mg IVPB Q8H PRN PRN Reason: NAUSEA Rosuvastatin Calcium (Crestor -) 20 mg PO HS [facility] Last Admin: 10/20/17 21:18 Dose: 20 mg Tamsulosin HCl (Flomax -) 0.4 mg PO DAILY@0830 [facility] Last Admin: 07/15/17 08:22 Dose: 0.4 mg - Objective Vital Signs: Vital Signs Temperature 98.3 F 07/15/17 06:03 Pulse Rate 69 07/15/17 06:03 Respiratory Rate 20 07/14/17 17:04 Blood Pressure 142/81 07/15/17 06:03 O2 Sat by Pulse Oximetry (%) 98 07/14/17 22:00 Constitutional: Yes: Anxious Eyes: Yes: WNL HENT: Yes: WNL Neck: Yes: WNL Cardiovascular: Yes: Regular Rate and Rhythm Respiratory: Yes: Regular Gastrointestinal: Yes: Soft Genitourinary: No: Anuria Musculoskeletal: Yes: Muscle Weakness Extremities: Yes: Cool Edema: No Peripheral Pulses WNL: Yes Integumentary: Yes: WNL Neurological: Yes: Confusion, Weakness Psychiatric: Yes: Other (dementia) Labs: CBC, BMP 07/14/17 06:00 07/14/17 06:00 INR, PTT INR Cancelled 07/09/17 21:15 Problem List - Problems (1) BPH (benign prostatic hyperplasia) Code(s): N40.0 - BENIGN PROSTATIC HYPERPLASIA WITHOUT LOWER URINRY TRACT SYMP (2) Dementia Code(s): F03.90 - UNSPECIFIED DEMENTIA WITHOUT BEHAVIORAL DISTURBANCE (3) HLD (hyperlipidemia) Assessment/Plan: on statin and fibrate. Code(s): E78.5 - HYPERLIPIDEMIA, UNSPECIFIED (4) HTN (hypertension) Assessment/Plan: on metorpolol, amlodipine. Code(s): I10 - ESSENTIAL (PRIMARY) HYPERTENSION (5) Parkinsons Code(s): G20 - PARKINSON'S DISEASE (6) Sepsis Assessment/Plan: on antibiotics per ID Now afebrile; initially elevated WBCs now WNL. DAWIT: no vegetations Code(s): A41.9 - SEPSIS, UNSPECIFIED ORGANISM
--- NOTE | 2017-07-15 13:13 | EKG ---
Test Reason : Blood Pressure : / mmHG Vent. Rate : 070 BPM Atrial Rate : 070 BPM P-R Int : 142 ms QRS Dur : 078 ms QT Int : 396 ms P-R-T Axes : -11 -09 031 degrees QTc Int : 427 ms NORMAL SINUS RHYTHM NONSPECIFIC T WAVE ABNORMALITY ABNORMAL ECG WHEN COMPARED WITH ECG OF 09-JUL-2017 21:03, NO SIGNIFICANT CHANGE WAS FOUND CLINICAL CORRELATION IS RECOMMENDED Confirmed by AMADOR LAY, KEIKO ([id number]) on 07/15/2017 1:13:12 PM Referred By: JEFERSON RODARTE Confirmed By:KEIKO ENGLISH MD
--- NOTE | 2017-07-15 13:18 | PN ---
Progress Note, Physician History of Present Illness: stable doing well no issues - Current Medication List Current Medications: Active Medications Acetaminophen (Tylenol -) 650 mg PO Q4H PRN PRN Reason: FEVER OR PAIN Last Admin: 07/13/17 10:05 Dose: 650 mg Amlodipine Besylate (Norvasc -) 10 mg PO DAILY [facility] Last Admin: 07/15/17 09:49 Dose: 10 mg Aspirin (Ecotrin -) 81 mg PO DAILY [facility] Last Admin: 07/15/17 09:49 Dose: 81 mg Carbidopa/Levodopa (Sinemet 25/100 -) 1 each PO TID [facility] Last Admin: 07/15/17 05:51 Dose: 1 each Fenofibric Acid (Trilipix -) 135 mg PO DAILY [facility] Last Admin: 07/15/17 09:50 Dose: 135 mg Heparin Sodium (Porcine) (Heparin -) 5,000 unit SQ BID [facility] Last Admin: 07/15/17 09:50 Dose: 5,000 unit Piperacillin/Tazobactam/Dextrose (Zosyn 2.25gm Ivpb (Premix)) 50 mls @ 100 mls/ hr IVPB Q6H-IV [facility] PRN Reason: Protocol Last Admin: 07/15/17 09:50 Dose: 100 mls/hr Metoprolol Succinate (Toprol Xl -) 50 mg PO DAILY [facility] Last Admin: 07/15/17 09:50 Dose: 50 mg Ondansetron HCl (Zofran Injection) 4 mg IVPB Q8H PRN PRN Reason: NAUSEA Rosuvastatin Calcium (Crestor -) 20 mg PO HS [facility] Last Admin: 07/14/17 21:18 Dose: 20 mg Tamsulosin HCl (Flomax -) 0.4 mg PO DAILY@0830 [facility] Last Admin: 07/15/17 08:22 Dose: 0.4 mg - Objective Vital Signs: Vital Signs Temperature 98.3 F 07/15/17 06:03 Pulse Rate 69 07/15/17 06:03 Respiratory Rate 20 07/14/17 17:04 Blood Pressure 142/81 07/15/17 06:03 O2 Sat by Pulse Oximetry (%) 98 07/14/17 22:00 Constitutional: Yes: No Distress, Calm HENT: Yes: Atraumatic Neck: Yes: Supple, Trachea Midline Cardiovascular: Yes: Regular Rate and Rhythm Respiratory: Yes: Regular, CTA Bilaterally Gastrointestinal: Yes: Normal Bowel Sounds, Soft Neurological: Yes: Alert, Oriented Psychiatric: Yes: Alert, Oriented Labs: CBC, BMP 07/14/17 06:00 07/14/17 06:00 INR, PTT INR Cancelled 07/09/17 21:15 Assessment/Plan patient found to have bactermia patient has been given vanco and zosyn also incidentally patient found to have high troponin cardio on case Problem List - Problems (1) Sepsis Code(s): A41.9 - SEPSIS, UNSPECIFIED ORGANISM (2) Elevated troponin Code(s): R74.8 - ABNORMAL LEVELS OF OTHER SERUM ENZYMES (3) HTN (hypertension) Code(s): I10 - ESSENTIAL (PRIMARY) HYPERTENSION (4) BPH (benign prostatic hyperplasia) Code(s): N40.0 - BENIGN PROSTATIC HYPERPLASIA WITHOUT LOWER URINRY TRACT SYMP (5) Parkinsons Code(s): G20 - PARKINSON'S DISEASE (6) Dementia Code(s): F03.90 - UNSPECIFIED DEMENTIA WITHOUT BEHAVIORAL DISTURBANCE (7) HLD (hyperlipidemia) Code(s): E78.5 - HYPERLIPIDEMIA, UNSPECIFIED 8 gm positive bacteremia plan continue abx patient needs a total of 7 days iv abx will stop abx on monday rest as per primary team
--- NOTE | 2017-07-15 18:31 | PN ---
Progress Note, Physician History of Present Illness: No new changes - Current Medication List Current Medications: Active Medications Acetaminophen (Tylenol -) 650 mg PO Q4H PRN PRN Reason: FEVER OR PAIN Last Admin: 07/13/17 10:05 Dose: 650 mg Amlodipine Besylate (Norvasc -) 10 mg PO DAILY [facility] Last Admin: 07/15/17 09:49 Dose: 10 mg Aspirin (Ecotrin -) 81 mg PO DAILY [facility] Last Admin: 07/15/17 09:49 Dose: 81 mg Carbidopa/Levodopa (Sinemet 25/100 -) 1 each PO TID [facility] Last Admin: 07/15/17 15:29 Dose: 1 each Fenofibric Acid (Trilipix -) 135 mg PO DAILY [facility] Last Admin: 07/15/17 09:50 Dose: 135 mg Heparin Sodium (Porcine) (Heparin -) 5,000 unit SQ BID [facility] Last Admin: 07/15/17 09:50 Dose: 5,000 unit Piperacillin/Tazobactam/Dextrose (Zosyn 2.25gm Ivpb (Premix)) 50 mls @ 100 mls/ hr IVPB Q6H-IV [facility] PRN Reason: Protocol Last Admin: 07/15/17 15:29 Dose: 100 mls/hr Metoprolol Succinate (Toprol Xl -) 50 mg PO DAILY [facility] Last Admin: 07/15/17 09:50 Dose: 50 mg Ondansetron HCl (Zofran Injection) 4 mg IVPB Q8H PRN PRN Reason: NAUSEA Rosuvastatin Calcium (Crestor -) 20 mg PO HS [facility] Last Admin: 07/14/17 21:18 Dose: 20 mg Tamsulosin HCl (Flomax -) 0.4 mg PO DAILY@0830 [facility] Last Admin: 07/15/17 08:22 Dose: 0.4 mg - Objective Vital Signs: Vital Signs Temperature 97.4 F L 07/15/17 16:15 Pulse Rate 78 07/15/17 16:15 Respiratory Rate 20 07/15/17 16:15 Blood Pressure 137/74 07/15/17 16:15 O2 Sat by Pulse Oximetry (%) 98 07/15/17 10:00 Constitutional: Yes: No Distress Neck: Yes: WNL, Supple Cardiovascular: Yes: WNL, Regular Rate and Rhythm Respiratory: Yes: WNL, Regular, CTA Bilaterally Gastrointestinal: Yes: WNL, Normal Bowel Sounds, Soft Labs: CBC, BMP 07/14/17 06:00 07/14/17 06:00 INR, PTT INR Cancelled 07/09/17 21:15 Problem List - Problems (1) Sepsis Assessment/Plan: Bacteremia BC (+) strept pyogenes grp A Repeat BC remain negative Urine culture negative Cont IV zosyn DAWIT done and no vegetations noted As per ID Code(s): A41.9 - SEPSIS, UNSPECIFIED ORGANISM (2) Elevated troponin Code(s): R74.8 - ABNORMAL LEVELS OF OTHER SERUM ENZYMES (3) HTN (hypertension) Assessment/Plan: BP stable Cont asa/norvasc/toprol Code(s): I10 - ESSENTIAL (PRIMARY) HYPERTENSION (4) BPH (benign prostatic hyperplasia) Assessment/Plan: Cont flomax Code(s): N40.0 - BENIGN PROSTATIC HYPERPLASIA WITHOUT LOWER URINRY TRACT SYMP (5) Parkinsons Assessment/Plan: Cont sinemet Code(s): G20 - PARKINSON'S DISEASE (6) Dementia Code(s): F03.90 - UNSPECIFIED DEMENTIA WITHOUT BEHAVIORAL DISTURBANCE (7) HLD (hyperlipidemia) Assessment/Plan: Cont crestor/fenofibrate Code(s): E78.5 - HYPERLIPIDEMIA, UNSPECIFIED
[2017-07-15] MEDS ORDERED: ROSUVASTATIN CA 10 MG TABLET (FP) ONE (21:44)
[2017-07-15] MEDS: ROSUVASTATIN CA 20 MG TABLET (FP) PO SCH (21:45)
[2017-07-16] MEDS: PIPERACILLIN/TAZOB 2.25 GM 50 ML IVPB SCH ×4 (02:06→21:10)
[2017-07-16] MEDS: CARBIDOPA/LEVODOPA 25/100 TABLET (FP) PO SCH ×3 (06:23→21:12)
[2017-07-16] MEDS ORDERED: PT OWN MED DRAWER 7, Y5N ONE (09:48)
[2017-07-16] MEDS: TAMSULOSIN HCL 0.4 MG CAP.ER.24H (FP) PO SCH (09:50)
[2017-07-16] MEDS: METOPROLOL SUCCINATE 50 MG TAB.SR.24H (FP) PO SCH (09:51)
[2017-07-16] MEDS: ASPIRIN COATED 81 MG TABLET.EC PO SCH (09:51)
[2017-07-16] MEDS: amLODIPine BESYLATE 10 MG TABLET (FP) PO SCH (09:51)
[2017-07-16] MEDS: HEPARIN NA (PORCINE) 5,000 UNITS/ML 1ML VIAL SQ SCH ×2 (09:51→21:11)
[2017-07-16] MEDS: FENOFIBRIC ACID 135 MG CAP PO SCH (09:52)
--- NOTE | 2017-07-16 12:32 | PN ---
Progress Note, Physician History of Present Illness: stable doing well no issues - Current Medication List Current Medications: Active Medications Acetaminophen (Tylenol -) 650 mg PO Q4H PRN PRN Reason: FEVER OR PAIN Last Admin: 07/13/17 10:05 Dose: 650 mg Amlodipine Besylate (Norvasc -) 10 mg PO DAILY [facility] Last Admin: 07/16/17 09:51 Dose: 10 mg Aspirin (Ecotrin -) 81 mg PO DAILY [facility] Last Admin: 07/16/17 09:51 Dose: 81 mg Carbidopa/Levodopa (Sinemet 25/100 -) 1 each PO TID [facility] Last Admin: 07/16/17 06:23 Dose: 1 each Fenofibric Acid (Trilipix -) 135 mg PO DAILY [facility] Last Admin: 07/16/17 09:52 Dose: 135 mg Heparin Sodium (Porcine) (Heparin -) 5,000 unit SQ BID [facility] Last Admin: 07/16/17 09:51 Dose: 5,000 unit Piperacillin/Tazobactam/Dextrose (Zosyn 2.25gm Ivpb (Premix)) 50 mls @ 100 mls/ hr IVPB Q6H-IV [facility] PRN Reason: Protocol Last Admin: 07/16/17 09:51 Dose: 100 mls/hr Metoprolol Succinate (Toprol Xl -) 50 mg PO DAILY [facility] Last Admin: 07/16/17 09:51 Dose: 50 mg Ondansetron HCl (Zofran Injection) 4 mg IVPB Q8H PRN PRN Reason: NAUSEA Rosuvastatin Calcium (Crestor -) 20 mg PO HS [facility] Last Admin: 07/15/17 21:45 Dose: 20 mg Tamsulosin HCl (Flomax -) 0.4 mg PO DAILY@0830 [facility] Last Admin: 07/16/17 09:50 Dose: 0.4 mg - Objective Vital Signs: Vital Signs Temperature 98.6 F 07/16/17 06:00 Pulse Rate 73 07/16/17 06:00 Respiratory Rate 20 07/16/17 06:00 Blood Pressure 143/87 07/16/17 06:00 O2 Sat by Pulse Oximetry (%) 98 07/15/17 10:00 Constitutional: Yes: No Distress, Calm Cardiovascular: Yes: Regular Rate and Rhythm Respiratory: Yes: Regular, CTA Bilaterally Gastrointestinal: Yes: Normal Bowel Sounds, Soft Neurological: Yes: Alert Psychiatric: Yes: Alert Labs: CBC, BMP 07/14/17 06:00 07/14/17 06:00 INR, PTT INR Cancelled 07/09/17 21:15 Assessment/Plan patient found to have bactermia patient has been given vanco and zosyn also incidentally patient found to have high troponin cardio on case Problem List - Problems (1) Sepsis Code(s): A41.9 - SEPSIS, UNSPECIFIED ORGANISM (2) Elevated troponin Code(s): R74.8 - ABNORMAL LEVELS OF OTHER SERUM ENZYMES (3) HTN (hypertension) Code(s): I10 - ESSENTIAL (PRIMARY) HYPERTENSION (4) BPH (benign prostatic hyperplasia) Code(s): N40.0 - BENIGN PROSTATIC HYPERPLASIA WITHOUT LOWER URINRY TRACT SYMP (5) Parkinsons Code(s): G20 - PARKINSON'S DISEASE (6) Dementia Code(s): F03.90 - UNSPECIFIED DEMENTIA WITHOUT BEHAVIORAL DISTURBANCE (7) HLD (hyperlipidemia) Code(s): E78.5 - HYPERLIPIDEMIA, UNSPECIFIED 8 gm positive bacteremia plan continue abx complete course
--- NOTE | 2017-07-16 19:28 | PN ---
Progress Note, Physician History of Present Illness: No new changes - Current Medication List Current Medications: Active Medications Acetaminophen (Tylenol -) 650 mg PO Q4H PRN PRN Reason: FEVER OR PAIN Last Admin: 07/13/17 10:05 Dose: 650 mg Amlodipine Besylate (Norvasc -) 10 mg PO DAILY [facility] Last Admin: 07/16/17 09:51 Dose: 10 mg Aspirin (Ecotrin -) 81 mg PO DAILY [facility] Last Admin: 07/16/17 09:51 Dose: 81 mg Carbidopa/Levodopa (Sinemet 25/100 -) 1 each PO TID [facility] Last Admin: 07/16/17 14:07 Dose: 1 each Fenofibric Acid (Trilipix -) 135 mg PO DAILY [facility] Last Admin: 07/16/17 09:52 Dose: 135 mg Heparin Sodium (Porcine) (Heparin -) 5,000 unit SQ BID [facility] Last Admin: 07/16/17 09:51 Dose: 5,000 unit Piperacillin/Tazobactam/Dextrose (Zosyn 2.25gm Ivpb (Premix)) 50 mls @ 100 mls/ hr IVPB Q6H-IV [facility] PRN Reason: Protocol Last Admin: 07/16/17 14:07 Dose: 100 mls/hr Metoprolol Succinate (Toprol Xl -) 50 mg PO DAILY [facility] Last Admin: 07/16/17 09:51 Dose: 50 mg Ondansetron HCl (Zofran Injection) 4 mg IVPB Q8H PRN PRN Reason: NAUSEA Rosuvastatin Calcium (Crestor -) 20 mg PO HS [facility] Last Admin: 07/15/17 21:45 Dose: 20 mg Tamsulosin HCl (Flomax -) 0.4 mg PO DAILY@0830 [facility] Last Admin: 07/16/17 09:50 Dose: 0.4 mg - Objective Vital Signs: Vital Signs Temperature 97.8 F 07/16/17 16:20 Pulse Rate 72 07/16/17 16:20 Respiratory Rate 18 07/16/17 16:20 Blood Pressure 124/63 07/16/17 16:20 O2 Sat by Pulse Oximetry (%) 98 07/16/17 10:00 Constitutional: Yes: No Distress HENT: Yes: WNL Neck: Yes: WNL, Supple Cardiovascular: Yes: WNL, Regular Rate and Rhythm Respiratory: Yes: WNL, Regular, CTA Bilaterally Gastrointestinal: Yes: WNL, Normal Bowel Sounds, Soft Edema: No Labs: CBC, BMP 07/14/17 06:00 07/14/17 06:00 INR, PTT INR Cancelled 07/09/17 21:15 Problem List - Problems (1) Sepsis Assessment/Plan: Bacteremia BC (+) strept pyogenes grp A Repeat BC remain negative Urine culture negative Cont IV zosyn Possible stopping antibxs in am DAWIT done and no vegetations noted As per ID Code(s): A41.9 - SEPSIS, UNSPECIFIED ORGANISM (2) Elevated troponin Assessment/Plan: Due to sepsis Echo within normal limits Code(s): R74.8 - ABNORMAL LEVELS OF OTHER SERUM ENZYMES (3) HTN (hypertension) Assessment/Plan: BP stable Cont asa/norvasc/toprol Code(s): I10 - ESSENTIAL (PRIMARY) HYPERTENSION (4) BPH (benign prostatic hyperplasia) Assessment/Plan: Cont flomax Code(s): N40.0 - BENIGN PROSTATIC HYPERPLASIA WITHOUT LOWER URINRY TRACT SYMP (5) Parkinsons Assessment/Plan: Cont sinemet Code(s): G20 - PARKINSON'S DISEASE (6) Dementia Assessment/Plan: Start PT eval Will stop megace bc appetite is good Code(s): F03.90 - UNSPECIFIED DEMENTIA WITHOUT BEHAVIORAL DISTURBANCE (7) HLD (hyperlipidemia) Code(s): E78.5 - HYPERLIPIDEMIA, UNSPECIFIED
--- NOTE | 2017-07-16 19:32 | PN ---
Progress Note, Physician Chief Complaint: Pt is alert; no complaints; his strong roby in God keeps him healthy, he says. History of Present Illness: The patient is an 87M with a PMH of parkinson's disease, dememtia, and HTN who presents to the ED via EMS with family. The son is at bedside and is translating. The son states that the patient was in normal health when he went to the restroom and was found by family to be shaking, and vomiting in the toilet. The son states that they had to hold him up while he was shaking. This has never happened before. The patient has no complaints and the son states that the patient had no complaints prior to this episode. The patient is demented and does not provide any history. - Current Medication List Current Medications: Active Medications Acetaminophen (Tylenol -) 650 mg PO Q4H PRN PRN Reason: FEVER OR PAIN Last Admin: 07/13/17 10:05 Dose: 650 mg Amlodipine Besylate (Norvasc -) 10 mg PO DAILY [facility] Last Admin: 07/16/17 09:51 Dose: 10 mg Aspirin (Ecotrin -) 81 mg PO DAILY [facility] Last Admin: 07/16/17 09:51 Dose: 81 mg Carbidopa/Levodopa (Sinemet 25/100 -) 1 each PO TID [facility] Last Admin: 07/16/17 14:07 Dose: 1 each Fenofibric Acid (Trilipix -) 135 mg PO DAILY [facility] Last Admin: 07/16/17 09:52 Dose: 135 mg Heparin Sodium (Porcine) (Heparin -) 5,000 unit SQ BID [facility] Last Admin: 07/16/17 09:51 Dose: 5,000 unit Piperacillin/Tazobactam/Dextrose (Zosyn 2.25gm Ivpb (Premix)) 50 mls @ 100 mls/ hr IVPB Q6H-IV [facility] PRN Reason: Protocol Last Admin: 07/16/17 14:07 Dose: 100 mls/hr Metoprolol Succinate (Toprol Xl -) 50 mg PO DAILY [facility] Last Admin: 07/16/17 09:51 Dose: 50 mg Ondansetron HCl (Zofran Injection) 4 mg IVPB Q8H PRN PRN Reason: NAUSEA Rosuvastatin Calcium (Crestor -) 20 mg PO HS [facility] Last Admin: 07/15/17 21:45 Dose: 20 mg Tamsulosin HCl (Flomax -) 0.4 mg PO DAILY@0830 [facility] Last Admin: 07/16/17 09:50 Dose: 0.4 mg - Objective Vital Signs: Vital Signs Temperature 97.8 F 07/16/17 16:20 Pulse Rate 72 07/16/17 16:20 Respiratory Rate 18 07/16/17 16:20 Blood Pressure 124/63 07/16/17 16:20 O2 Sat by Pulse Oximetry (%) 98 07/16/17 10:00 Constitutional: Yes: No Distress Eyes: Yes: WNL HENT: Yes: WNL Neck: Yes: WNL Cardiovascular: Yes: Regular Rate and Rhythm, S2 (split) Respiratory: Yes: WNL Gastrointestinal: Yes: Soft ...Rectal Exam: Yes: Deferred Genitourinary: No: Anuria Musculoskeletal: Yes: Muscle Weakness Extremities: Yes: WNL Edema: No Peripheral Pulses WNL: Yes Integumentary: Yes: WNL Neurological: Yes: WNL Psychiatric: Yes: Other (hx dementia) Labs: CBC, BMP 07/14/17 06:00 07/14/17 06:00 INR, PTT INR Cancelled 07/09/17 21:15 Problem List - Problems (1) BPH (benign prostatic hyperplasia) Code(s): N40.0 - BENIGN PROSTATIC HYPERPLASIA WITHOUT LOWER URINRY TRACT SYMP (2) Dementia Code(s): F03.90 - UNSPECIFIED DEMENTIA WITHOUT BEHAVIORAL DISTURBANCE (3) HLD (hyperlipidemia) Assessment/Plan: on statin and fibrate; f/u lipid levels and TSH. Code(s): E78.5 - HYPERLIPIDEMIA, UNSPECIFIED (4) HTN (hypertension) Assessment/Plan: on metorpolol, amlodipine. Code(s): I10 - ESSENTIAL (PRIMARY) HYPERTENSION (5) Parkinsons Code(s): G20 - PARKINSON'S DISEASE (6) Sepsis Assessment/Plan: on antibiotics per ID Now afebrile; initially elevated WBCs now WNL. DAWIT: no vegetations Code(s): A41.9 - SEPSIS, UNSPECIFIED ORGANISM
[2017-07-16] MEDS ORDERED: ROSUVASTATIN CA 10 MG TABLET (FP) ONE (20:34)
[2017-07-16] MEDS: ROSUVASTATIN CA 20 MG TABLET (FP) PO SCH (21:11)
[2017-07-17] MEDS: PIPERACILLIN/TAZOB 2.25 GM 50 ML IVPB SCH ×2 (02:15→09:18)
[2017-07-17] MEDS: CARBIDOPA/LEVODOPA 25/100 TABLET (FP) PO SCH ×3 (06:04→21:38)
[2017-07-17] MEDS ORDERED: PT OWN MED DRAWER 7, Y5N ONE ×2 (09:13→21:39)
[2017-07-17] MEDS: amLODIPine BESYLATE 10 MG TABLET (FP) PO SCH (09:18)
[2017-07-17] MEDS: ASPIRIN COATED 81 MG TABLET.EC PO SCH (09:18)
[2017-07-17] MEDS: TAMSULOSIN HCL 0.4 MG CAP.ER.24H (FP) PO SCH (09:18)
[2017-07-17] MEDS: HEPARIN NA (PORCINE) 5,000 UNITS/ML 1ML VIAL SQ SCH (09:19)
[2017-07-17] MEDS: METOPROLOL SUCCINATE 50 MG TAB.SR.24H (FP) PO SCH (09:19)
[2017-07-17] MEDS: FENOFIBRIC ACID 135 MG CAP PO SCH (09:19)
--- NOTE | 2017-07-17 12:05 | PN ---
Progress Note, Physician History of Present Illness: seen and examined today in nad. no overnight events. no new complaints. - Current Medication List Current Medications: Active Medications Acetaminophen (Tylenol -) 650 mg PO Q4H PRN PRN Reason: FEVER OR PAIN Last Admin: 07/13/17 10:05 Dose: 650 mg Amlodipine Besylate (Norvasc -) 10 mg PO DAILY [facility] Last Admin: 07/17/17 09:18 Dose: 10 mg Aspirin (Ecotrin -) 81 mg PO DAILY [facility] Last Admin: 07/17/17 09:18 Dose: 81 mg Carbidopa/Levodopa (Sinemet 25/100 -) 1 each PO TID [facility] Last Admin: 07/17/17 06:04 Dose: 1 each Fenofibric Acid (Trilipix -) 135 mg PO DAILY [facility] Last Admin: 07/17/17 09:19 Dose: 135 mg Piperacillin/Tazobactam/Dextrose (Zosyn 2.25gm Ivpb (Premix)) 50 mls @ 100 mls/ hr IVPB Q6H-IV [facility] PRN Reason: Protocol Last Admin: 07/17/17 09:18 Dose: 100 mls/hr Metoprolol Succinate (Toprol Xl -) 50 mg PO DAILY [facility] Last Admin: 07/17/17 09:19 Dose: 50 mg Ondansetron HCl (Zofran Injection) 4 mg IVPB Q8H PRN PRN Reason: NAUSEA Rosuvastatin Calcium (Crestor -) 20 mg PO HS [facility] Last Admin: 07/16/17 21:11 Dose: 20 mg Tamsulosin HCl (Flomax -) 0.4 mg PO DAILY@0830 [facility] Last Admin: 07/17/17 09:18 Dose: 0.4 mg - Objective Vital Signs: Vital Signs Temperature 98.3 F 07/17/17 07:58 Pulse Rate 70 07/17/17 07:58 Respiratory Rate 20 07/17/17 07:58 Blood Pressure 142/72 07/17/17 07:58 O2 Sat by Pulse Oximetry (%) 98 07/16/17 22:00 Constitutional: Yes: Well Nourished, No Distress, Calm Eyes: Yes: Conjunctiva Clear, EOM Intact, PERRL HENT: Yes: Atraumatic, Normocephalic Neck: Yes: Supple, Trachea Midline Cardiovascular: Yes: Regular Rate and Rhythm, S1, S2. No: Bradycardia, Tachycardia, Pulse Irregular, Bruit, JVD, Gallop, Murmur, Rub, S3, S4, Varicosities Respiratory: Yes: Regular, CTA Bilaterally. No: Rales, Rhonchi, Wheezes Gastrointestinal: Yes: Normal Bowel Sounds, Soft. No: Distention, Tenderness Extremities: Yes: WNL Edema: No Peripheral Pulses WNL: Yes Peripheral Pulses: Left Doralis Pedis: 2+, Right Dorsalis Pedis: 2+ Neurological: Yes: Alert, Oriented Psychiatric: Yes: Alert, Oriented Labs: CBC, BMP 07/14/17 06:00 07/14/17 06:00 INR, PTT INR Cancelled 07/09/17 21:15 - ....Imaging Chest X-ray: Report Reviewed, Image Reviewed EKG: Report Reviewed, Image Reviewed Other: Report Reviewed, Image Reviewed Assessment/Plan 87 year old man with a history of Parkinsons disease and dementia, HTN, CKD, mildly dilated asc aorta, BPH admitted with fever, chills, elevated wbc and incidentally noted to have a slightly elevated troponin and strep pyogenes bacteremia of unclear etiology. Sepsis-strep pyogenes bacteremia: unclear source -ID following, pt on Zosyn -repeat blood cultures showed no growth -DAWIT showed no sign of endocarditis -cont Abx as per ID Elevated troponin: minimally elevated with normal CK level, did not significantly trend up -unlikely ACS, more likely trop elevated due to CKD and sepsis, trop trended down to normal -no chest pain or sob -no ischemia on ekg -no ischemia on last nuclear stress test 2014 -Echo showed normal LV function no significant valvular abnl -cont ASA, Crestor, Toprol, Norvasc -no additional inpatient cardiac work up needed at this time, recc outpatient f/ up HTN-currently adequately controlled -cont norvasc and toprol at current doses
--- NOTE | 2017-07-17 13:37 | PN ---
Progress Note, Physician History of Present Illness: doing well no issues - Current Medication List Current Medications: Active Medications Acetaminophen (Tylenol -) 650 mg PO Q4H PRN PRN Reason: FEVER OR PAIN Last Admin: 07/13/17 10:05 Dose: 650 mg Amlodipine Besylate (Norvasc -) 10 mg PO DAILY [facility] Last Admin: 07/17/17 09:18 Dose: 10 mg Aspirin (Ecotrin -) 81 mg PO DAILY [facility] Last Admin: 07/17/17 09:18 Dose: 81 mg Carbidopa/Levodopa (Sinemet 25/100 -) 1 each PO TID [facility] Last Admin: 07/17/17 06:04 Dose: 1 each Fenofibric Acid (Trilipix -) 135 mg PO DAILY [facility] Last Admin: 07/17/17 09:19 Dose: 135 mg Piperacillin/Tazobactam/Dextrose (Zosyn 2.25gm Ivpb (Premix)) 50 mls @ 100 mls/ hr IVPB Q6H-IV [facility] PRN Reason: Protocol Last Admin: 07/17/17 09:18 Dose: 100 mls/hr Metoprolol Succinate (Toprol Xl -) 50 mg PO DAILY [facility] Last Admin: 07/17/17 09:19 Dose: 50 mg Ondansetron HCl (Zofran Injection) 4 mg IVPB Q8H PRN PRN Reason: NAUSEA Rosuvastatin Calcium (Crestor -) 20 mg PO HS [facility] Last Admin: 07/16/17 21:11 Dose: 20 mg Tamsulosin HCl (Flomax -) 0.4 mg PO DAILY@0830 [facility] Last Admin: 07/17/17 09:18 Dose: 0.4 mg - Objective Vital Signs: Vital Signs Temperature 97.5 F L 07/17/17 09:10 Pulse Rate 79 07/17/17 09:10 Respiratory Rate 18 07/17/17 09:10 Blood Pressure 153/85 07/17/17 09:10 O2 Sat by Pulse Oximetry (%) 98 07/16/17 22:00 Constitutional: Yes: No Distress, Calm Cardiovascular: Yes: Regular Rate and Rhythm Respiratory: Yes: Regular, CTA Bilaterally Gastrointestinal: Yes: Normal Bowel Sounds, Soft Musculoskeletal: Yes: WNL Extremities: Yes: WNL Neurological: Yes: Alert, Oriented Psychiatric: Yes: Alert, Oriented Labs: CBC, BMP 07/14/17 06:00 10/20/17 06:00 INR, PTT INR Cancelled 07/09/17 21:15 Assessment/Plan patient found to have bactermia patient has been given vanco and zosyn also incidentally patient found to have high troponin cardio on case Problem List - Problems (1) Sepsis Code(s): A41.9 - SEPSIS, UNSPECIFIED ORGANISM (2) Elevated troponin Code(s): R74.8 - ABNORMAL LEVELS OF OTHER SERUM ENZYMES (3) HTN (hypertension) Code(s): I10 - ESSENTIAL (PRIMARY) HYPERTENSION (4) BPH (benign prostatic hyperplasia) Code(s): N40.0 - BENIGN PROSTATIC HYPERPLASIA WITHOUT LOWER URINRY TRACT SYMP (5) Parkinsons Code(s): G20 - PARKINSON'S DISEASE (6) Dementia Code(s): F03.90 - UNSPECIFIED DEMENTIA WITHOUT BEHAVIORAL DISTURBANCE (7) HLD (hyperlipidemia) Code(s): E78.5 - HYPERLIPIDEMIA, UNSPECIFIED 8 gm positive bacteremia plan stopped abx repeat cx negative jasmin negative patient stable
--- NOTE | 2017-07-17 18:49 | PN ---
Progress Note, Physician History of Present Illness: No new complaints - Current Medication List Current Medications: Active Medications Acetaminophen (Tylenol -) 650 mg PO Q4H PRN PRN Reason: FEVER OR PAIN Last Admin: 07/13/17 10:05 Dose: 650 mg Amlodipine Besylate (Norvasc -) 10 mg PO DAILY [facility] Last Admin: 07/17/17 09:18 Dose: 10 mg Aspirin (Ecotrin -) 81 mg PO DAILY [facility] Last Admin: 07/17/17 09:18 Dose: 81 mg Carbidopa/Levodopa (Sinemet 25/100 -) 1 each PO TID [facility] Last Admin: 07/17/17 13:51 Dose: 1 each Fenofibric Acid (Trilipix -) 135 mg PO DAILY [facility] Last Admin: 07/17/17 09:19 Dose: 135 mg Metoprolol Succinate (Toprol Xl -) 50 mg PO DAILY [facility] Last Admin: 07/17/17 09:19 Dose: 50 mg Ondansetron HCl (Zofran Injection) 4 mg IVPB Q8H PRN PRN Reason: NAUSEA Rosuvastatin Calcium (Crestor -) 20 mg PO HS [facility] Last Admin: 07/16/17 21:11 Dose: 20 mg Tamsulosin HCl (Flomax -) 0.4 mg PO DAILY@0830 [facility] Last Admin: 07/17/17 09:18 Dose: 0.4 mg - Objective Vital Signs: Vital Signs Temperature 98.0 F 07/17/17 14:53 Pulse Rate 84 07/17/17 14:53 Respiratory Rate 16 07/17/17 14:53 Blood Pressure 122/82 07/17/17 14:53 O2 Sat by Pulse Oximetry (%) 98 07/16/17 22:00 Constitutional: Yes: No Distress Cardiovascular: Yes: WNL, Regular Rate and Rhythm Respiratory: Yes: WNL, Regular, CTA Bilaterally Gastrointestinal: Yes: WNL, Normal Bowel Sounds, Soft Labs: CBC, BMP 07/14/17 06:00 07/14/17 06:00 INR, PTT INR Cancelled 07/09/17 21:15 Problem List - Problems (1) Sepsis Assessment/Plan: Bacteremia BC (+) strept pyogenes grp A Repeat BC remain negative Urine culture negative Pt is now off antibxs DAWIT done and no vegetations noted DC planning for am Code(s): A41.9 - SEPSIS, UNSPECIFIED ORGANISM (2) Elevated troponin Assessment/Plan: Due to sepsis Echo within normal limits Code(s): R74.8 - ABNORMAL LEVELS OF OTHER SERUM ENZYMES (3) HTN (hypertension) Assessment/Plan: BP stable Cont asa/norvasc/toprol Code(s): I10 - ESSENTIAL (PRIMARY) HYPERTENSION (4) BPH (benign prostatic hyperplasia) Assessment/Plan: Cont flomax Code(s): N40.0 - BENIGN PROSTATIC HYPERPLASIA WITHOUT LOWER URINRY TRACT SYMP (5) Parkinsons Assessment/Plan: Cont sinemet Code(s): G20 - PARKINSON'S DISEASE (6) Dementia Assessment/Plan: Start PT eval Will stop megace bc appetite is good Code(s): F03.90 - UNSPECIFIED DEMENTIA WITHOUT BEHAVIORAL DISTURBANCE (7) HLD (hyperlipidemia) Code(s): E78.5 - HYPERLIPIDEMIA, UNSPECIFIED
[2017-07-17] MEDS ORDERED: ROSUVASTATIN CA 10 MG TABLET (FP) ONE (21:37)
[2017-07-17] MEDS: ROSUVASTATIN CA 20 MG TABLET (FP) PO SCH (21:39)
[2017-07-18] MEDS: CARBIDOPA/LEVODOPA 25/100 TABLET (FP) PO SCH (06:16)
[2017-07-18] MEDS: TAMSULOSIN HCL 0.4 MG CAP.ER.24H (FP) PO SCH (08:20)
[2017-07-18] MEDS ORDERED: PT OWN MED DRAWER 7, Y5N ONE (10:10)
[2017-07-18] MEDS: ASPIRIN COATED 81 MG TABLET.EC PO SCH (10:32)
[2017-07-18] MEDS: FENOFIBRIC ACID 135 MG CAP PO SCH (10:32)
[2017-07-18] MEDS: amLODIPine BESYLATE 10 MG TABLET (FP) PO SCH (10:32)
[2017-07-18] MEDS: METOPROLOL SUCCINATE 50 MG TAB.SR.24H (FP) PO SCH (10:32)
--- NOTE | 2017-07-18 11:21 | DS ---
Physical Examination Vital Signs: Vital Signs Temperature 98.5 F 07/18/17 06:17 Pulse Rate 70 07/18/17 06:17 Respiratory Rate 20 07/18/17 06:17 Blood Pressure 138/88 07/18/17 06:17 O2 Sat by Pulse Oximetry (%) 97 07/17/17 22:00 Labs: CBC, BMP 07/14/17 06:00 07/14/17 06:00 Discharge Summary Reason For Visit: NSTEMI PNEUMONIA Current Active Problems BPH (benign prostatic hyperplasia) (Acute) Dementia (Acute) Elevated troponin (Acute) HLD (hyperlipidemia) (Acute) HTN (hypertension) (Acute) NSTEMI (non-ST elevated myocardial infarction) (Acute) Parkinsons (Acute) Pneumonia (Acute) Sepsis (Acute) Condition: Stable - Instructions Diet, Activity, Other Instructions: [address] Mir in 1 week [phone] Referrals: Last Doan MD [Primary Care Provider] - Disposition: HOME - Home Medications Comprehensive Discharge Medication List: Ambulatory Orders Amlodipine Besylate [Norvasc -] 10 mg PO DAILY #0 tablet 08/20/12 Aspirin Coated [Ecotrin -] 81 mg PO DAILY #0 tablet.ec 08/20/12 Carbidopa/Levodopa [Carbidopa-Levo 25-100 Tab] 1 each PO TID #0 tablet 08/20/12 Fenofibrate 160 mg PO DAILY #0 tablet 08/20/12 Metoprolol Succinate [Toprol XL -] 50 mg PO DAILY #0 tab.sr.24h 08/20/12 Rosuvastatin Calcium [Crestor] 20 mg PO DAILY #0 tablet 08/20/12 Tamsulosin HCl 0.4 mg PO DAILY 07/09/17 Amlodipine Besylate [Norvasc -] 10 mg PO DAILY #30 tablet 07/18/17 Metoprolol Succinate [Toprol XL -] 50 mg PO DAILY #30 tab 07/18/17
[2017-07-18 12:36] VITALS: BP 151/83; PULSE 74; TEMP 98.4
== END 2017-07-18 13:13 | disposition home or self-care (01) | DRG 871 ==
LOC: JER 20:05 → JERBED 22:36 → J8W 07-10 15:58
PROVIDERS: ADMIT Internal Medicine; ATTEND Internal Medicine
PROC: B246ZZ4 Ultrasonography of Right and Left Heart, Transesophageal (ICD-10-PCS; principal; 2017-07-14 10:00)
DX: A41.9 Sepsis, unspecified organism (principal); J18.9 Pneumonia, unspecified organism; N40.0 Benign prostatic hyperplasia without lower urinary tract symptoms; G20 Parkinson's disease; F03.90 Unspecified dementia, unspecified severity, without behavioral disturbance, psychotic disturbance, mood disturbance, and anxiety; E78.5 Hyperlipidemia, unspecified; I12.9 Hypertensive chronic kidney disease with stage 1 through stage 4 chronic kidney disease, or unspecified chronic kidney disease; N18.9 Chronic kidney disease, unspecified
CPT/HCPCS: 36415; 71010-TC; 73610-TC-LT; 73630-TC-LT; 76700-TC; 76775-TC; 80053; 81003; 81015; 82550; 82803; 83605; 84484; 85025; 86850; 86900; 86901; 87040; 87086; 87186; 90688; 93005; 93010; 93306-TC; 93312; 93325; 97116-GP; 97161-GP; 99284-25; J1644

== ENCOUNTER 2018-01-14 16:54 | Observation (INO) | payer OTHER ==
[2018-01-14] MEDS ORDERED: ONDANSETRON 4 MG/2 ML VIAL ONE (17:07)
--- NOTE | 2018-01-14 17:13 | PDOC ---
History of Present Illness - History of Present Illness Initial Comments: 01/14/18 17:12 Mr. Chase is an 87 yo male w/ pmh of Parkinson's dementia, HTN, BPH, and CKD who presents following nausea, vomiting, and syncopal episode earlier today. Per family who is with him he lost consciousness however did not fall or hit his head as he was in a chair at the time. Following this he vomited. He is currently to baseline and reporting no pain or other complaints. Per family who is with him he has recently started a new medication in the past week although they cannot recall which it is. The patient denies chest pain, shortness of breath, headache and dizziness. Denies fever, chills, diarrhea and constipation. Denies dysuria, frequency, urgency and hematuria. Allergies: NKDA <Jose Mercado - Last Filed: 01/14/18 19:27> <Zulema Hill - Last Filed: 01/14/18 19:41> - General Chief Complaint: Syncope/Near Syncope Stated Complaint: SYNCOPE WITH NAUSEA Time Seen by Provider: 01/14/18 17:12 Past History - Past Medical History COPD: No Dementia: Yes GI Disorders: Yes (bph) HTN: Yes Hypercholesterolemia: Yes Other medical history: parkinson,BPH - Surgical History Abdominal Surgery: No - Immunization History Td Vaccination: Yes TDAP Vaccination: Yes Immunization Up to Date: Yes - Suicide/Smoking/Psychosocial Hx Smoking Status: No Smoking History: Unknown if ever smoked Years of Tobacco Use: 0 Have you smoked in the past 12 months: No Number of Cigarettes Smoked Daily: 0 Cigars Per Day: 0 Information on smoking cessation initiated: No Hx Alcohol Use: No Drug/Substance Use Hx: No Substance Use Type: None Hx Substance Use Treatment: No <Jose Mercado - Last Filed: 01/14/18 19:27> <Zulema Hill - Last Filed: 01/14/18 19:41> - Past Medical History Allergies/Adverse Reactions: Allergies Allergy/AdvReac Type Severity Reaction Status Date / Time No Known Allergies Allergy Verified 01/14/18 17:06 Home Medications: Ambulatory Orders Aspirin Coated [Ecotrin -] 81 mg PO DAILY #0 tablet.ec 08/20/12 Carbidopa/Levodopa [Carbidopa-Levo 25-100 Tab] 1 each PO TID #0 tablet 08/20/12 Fenofibrate 160 mg PO DAILY #0 tablet 08/20/12 Tamsulosin HCl 0.4 mg PO DAILY 07/09/17 Amlodipine Besylate [Norvasc -] 5 mg PO DAILY 01/14/18 Atorvastatin Ca [Lipitor] 20 mg PO HS 01/14/18 Losartan Potassium 25 mg PO DAILY 01/14/18 Metoprolol Succinate [Toprol XL -] 25 mg PO BID 01/14/18 Ropinirole HCl [Requip] 0.5 mg PO BID 01/14/18 Review of Systems - Review of Systems Comments:: 01/14/18 17:13 As above. Unable to obtain further. <Jose Mercado - Last Filed: 01/14/18 19:27> *Physical Exam - Vital Signs Last Vital Signs Temp Pulse Resp BP Pulse Ox 97.3 F L 52 L 18 155/83 100 01/14/18 17:07 01/14/18 17:07 01/14/18 17:07 01/14/18 17:07 01/14/18 17:07 - Physical Exam Comments: 01/14/18 17:13 GENERAL: Awake, alert, and oriented to baseline, in no acute distress HEAD: No signs of trauma, normocephalic, atraumatic EYES: PERRLA, EOMI, sclera anicteric, conjunctiva clear ENT: Auricles normal inspection, hearing grossly normal, nares patent, oropharynx clear without exudates. Moist mucosa NECK: Normal ROM, supple, no lymphadenopathy, JVD, or masses LUNGS: No distress, speaks full sentences, clear to auscultation bilaterally HEART: Regular rate and rhythm, normal S1 and S2, no murmurs, rubs or gallops, peripheral pulses normal and equal bilaterally. ABDOMEN: Soft, nontender, normoactive bowel sounds. No guarding, no rebound. No masses EXTREMITIES: Normal inspection, Normal range of motion, no edema. No clubbing or cyanosis. NEUROLOGICAL: Cranial nerves II through XII grossly intact. Normal speech, no focal sensorimotor deficits SKIN: Warm, Dry, normal turgor, no rashes or lesions noted. <Jose Mercado - Last Filed: 01/14/18 19:27> - Vital Signs Last Vital Signs Temp Pulse Resp BP Pulse Ox 98.2 F 54 L 16 141/78 96 01/14/18 17:30 01/14/18 18:06 01/14/18 18:06 01/14/18 18:06 01/14/18 18:06 <Zulema Hill - Last Filed: 01/14/18 19:41> ED Treatment Course - LABORATORY CBC & Chemistry Diagram: 01/14/18 17:43 01/14/18 17:43 <Jose Mercado - Last Filed: 01/14/18 19:27> - LABORATORY CBC & Chemistry Diagram: 01/14/18 17:43 01/14/18 17:43 - ADDITIONAL ORDERS Additional order review: Laboratory Results 01/14/18 01/14/18 01/14/18 18:10 17:43 17:43 Sodium 142 Potassium 4.1 Chloride 107 Carbon Dioxide 29 Anion Gap 6 L BUN 24 H D Creatinine 1.4 H Creat Clearance w eGFR 47.94 Random Glucose 110 H Calcium 8.6 Total Bilirubin 0.4 D AST 22 ALT 16 D Alkaline Phosphatase 53 Creatine Kinase 81 Troponin I 0.04 Total Protein 6.7 Albumin 3.6 Urine Color Dkyellow Urine Appearance Slcloudy Urine pH 5.0 Ur Specific [place] 1.027 Urine Protein 2+ H Urine Glucose (UA) Negative Urine Ketones Trace H Urine Blood Negative Urine Nitrite Negative Urine Bilirubin Negative Urine Urobilinogen 4.0 e.u/dl Ur Leukocyte Esterase Negative Urine WBC (Auto) 2 Urine RBC (Auto) 4 Ur Epithelial Cells Rare Hyaline Casts 3 Urine Mucus Few Stool Occult Blood Negative 01/14/18 17:43 RBC 4.39 MCV 80.2 MCHC 33.1 RDW 18.0 H D MPV 8.0 Neutrophils % 59.4 Lymphocytes % 17.8 Monocytes % 9.8 Eosinophils % 12.4 H Basophils % 0.6 <Zulema Hill - Last Filed: 01/14/18 19:41> Medical Decision Making - Medical Decision Making 01/14/18 17:48 Mr. Chase is an 87 yo male w/ pmh as described who presents following syncopal episode. Given patient's stated medication change, PCP contacted for further information regarding medications and normal status. CBC/CMP/UA/U culture/EKG/Troponins/stool for occult blood ordered for evaluation of other potential causes. 01/14/18 19:25 Labs grossly wnl as below. Patient noted to be adriana to 47 on EKG, otherwise regular rhythm, normal interval, normal access, no ST elevations or depressions. Patient admitted to Dr. Ryan for further evaluation. Laboratory Results - last 24 hr 01/14/18 01/14/18 01/14/18 17:43 17:43 17:43 WBC 3.6 L RBC 4.39 Hgb 11.7 Hct 35.2 L MCV 80.2 MCH 26.6 MCHC 33.1 RDW 18.0 H D Plt Count 222 D MPV 8.0 Neutrophils % 59.4 Lymphocytes % 17.8 Monocytes % 9.8 Eosinophils % 12.4 H Basophils % 0.6 Sodium 142 Potassium 4.1 Chloride 107 Carbon Dioxide 29 Anion Gap 6 L BUN 24 H D Creatinine 1.4 H Creat Clearance w eGFR 47.94 Random Glucose 110 H Calcium 8.6 Total Bilirubin 0.4 D AST 22 ALT 16 D Alkaline Phosphatase 53 Creatine Kinase 81 Troponin I 0.04 Total Protein 6.7 Albumin 3.6 Urine Color Urine Appearance Urine pH Ur Specific [place] Urine Protein Urine Glucose (UA) Urine Ketones Urine Blood Urine Nitrite Urine Bilirubin Urine Urobilinogen Ur Leukocyte Esterase Urine WBC (Auto) Urine RBC (Auto) Ur Epithelial Cells Hyaline Casts Urine Mucus Stool Occult Blood Negative 01/14/18 18:10 WBC RBC Hgb Hct MCV MCH MCHC RDW Plt Count MPV Neutrophils % Lymphocytes % Monocytes % Eosinophils % Basophils % Sodium Potassium Chloride Carbon Dioxide Anion Gap BUN Creatinine Creat Clearance w eGFR Random Glucose Calcium Total Bilirubin AST ALT Alkaline Phosphatase Creatine Kinase Troponin I Total Protein Albumin Urine Color Dkyellow Urine Appearance Slcloudy Urine pH 5.0 Ur Specific [place] 1.027 Urine Protein 2+ H Urine Glucose (UA) Negative Urine Ketones Trace H Urine Blood Negative Urine Nitrite Negative Urine Bilirubin Negative Urine Urobilinogen 4.0 e.u/dl Ur Leukocyte Esterase Negative Urine WBC (Auto) 2 Urine RBC (Auto) 4 Ur Epithelial Cells Rare Hyaline Casts 3 Urine Mucus Few Stool Occult Blood 01/14/18 19:27 <Jose Mercado - Last Filed: 01/14/18 19:27> *DC/Admit/Observation/Transfer - Discharge Dispostion Admit: Yes <Jose Mercado - Last Filed: 04/22/18 19:27> <Zulema Hill - Last Filed: 01/14/18 19:41> Diagnosis at time of Disposition: Syncope Qualifiers: Syncope type: unspecified Qualified Code(s): R55 - Syncope and collapse - Referrals Referrals: Last Doan MD [Primary Care Provider] -
--- NOTE | 2018-01-14 17:26 | PDOC ---
Attending Attestation - Resident Resident Name: Jose Mercado - ED Attending Attestation I have performed the following: I have examined & evaluated the patient, The case was reviewed & discussed with the resident, I agree w/resident's findings & plan, Exceptions are as noted - HPI HPI: 01/14/18 19:40 87-year-old male brought in by ambulance after a syncopal episode following an episode of vomiting. Past medical history significant for Parkinson's. His aide call him from falling out of the chair and therefore he did not have any head trauma. He was seated when he had this episode. Patient is currently alert 01/14/18 19:42 - Physicial Exam PE: 01/14/18 19:42 well-developed 87-year-old male with a history of Parkinson's dementia in no acute distress. Head normocephalic/atraumatic. Eyes pupils equal, reactive to light and accommodation. Extraocular movements intact. Neck is supple, no bruits. Lungs are clear to auscultation. CVS bradycardia. Abdomen is soft, nontender, no guarding. Extremities +1 pitting edema, no erythema. Neuro alert, moving all extremities. Skin warm and dry - Medical Decision Making 01/14/18 19:[address] Last Doan and Dr. Ryan is covering this evening. The patient's family states that he was seen by his head doffer Dr. Ramirez in the office on Monday and had an echo that was unremarkable. His son said he did start him on a new medication, but he couldn't recall if it was Flomax or losartan 01/14/18 19:46 Patient is guaiac-negative from below. EKG is bradycardia at 47 Troponin is negative Patient admitted to obs telemetry
[2018-01-14 17:49] LABS: BASO % 0.6 % (0-2.0); EOS % 12.4 % (0-4.5); HEMATOCRIT 35.2 % (35.4-49); HEMOGLOBIN 11.7 GM/dL (11.7-16.9); LYMPH % 17.8 % (8-40); MCH 26.6 pg (25.7-33.7); MCHC 33.1 g/dl (32.0-35.9); MEAN CELL VOLUME 80.2 fl (80-96); MONO % 9.8 % (3.8-10.2); NEUT % 59.4 % (42.8-82.8); PLATELET COUNT 222 K/MM3 (134-434); RBC 4.39 M/mm3 (4.00-5.60); WHITE BLOOD COUNT 3.6 K/mm3 (4.0-10.0)
[2018-01-14 18:17] LABS: URINE APPEARANCE SLCLOUDY; URINE BILIRUBIN NEGATIVE (<2.0 mg/dL); URINE BLOOD NEGATIVE (NEGATIVE); URINE COLOR DKYELLOW; URINE GLUCOSE (UA) NEGATIVE (NEGATIVE); URINE KETONE TRACE (NEGATIVE); URINE LEUK ESTERASE NEGATIVE (NEGATIVE); URINE NITRITE NEGATIVE (NEGATIVE); URINE UROBILINOGEN 4.0 E.U/dl mg/dL (0.2-1.0)
[2018-01-14 18:18] LABS: ALBUMIN 3.6 g/dl (3.4-5.0); ANION GAP 6 (8-16); BILIRUBIN,TOTAL 0.4 mg/dL (0.2-1.0); BLOOD UREA NITROGEN 24 mg/dL (7-18); CALCIUM 8.6 mg/dL (8.5-10.1); CHLORIDE 107 mmol/L (98-107); CO2 29 mmol/L (21-32); CREATININE 1.4 mg/dL (0.7-1.3); GLUCOSE,RANDOM 110 mg/dL (74-106); POTASSIUM 4.1 mmol/L (3.5-5.1); SGOT/AST 22 U/L (15-37); SGPT/ALT 16 U/L (12-78); SODIUM 142 mmol/L (136-145); TOT PROT 6.7 g/dl (6.4-8.2)
[2018-01-14 18:19] LABS: URINE PROTEIN 2+ (NEGATIVE)
[2018-01-14 18:21] LABS: EPI CELLS RARE /HPF (FEW); URINE HYALINE CAST 3 /lpf; URINE MUCUS FEW
[2018-01-14 18:21] LABS: ALK PHOS 53 U/L (45-117)
[2018-01-14 23:25] VITALS: BMI 24.2
--- NOTE | 2018-01-14 23:44 | HP ---
Admitting History and Physical - Admission History of Present Illness: Pt is an 87 y/o male w/ PMH significant for Parkinson's dz, dementia, HTN, BPH, and CKD. Pt was brought to the ER after experiencing nausea, vomiting, and syncopal episode in the day. Per family who is with him he lost consciousness however he did not fall or hit his head as he was in a chair at the time. Following this he vomited. He is currently to baseline and reporting no pain or other complaints. Per family who is with him he has recently started a new medication in the past week although they cannot recall which it is. - Past Medical History [employer]: Yes: Dementia, Parkinson's Cardiovascular: Yes: Aneurysm, HTN Renal/: Yes: Renal Inusuff, BPH - Smoking History Smoking history: Unknown if ever smoked Have you smoked in the past 12 months: No Aproximately how many cigarettes per day: 0 - Alcohol/Substance Use Hx Alcohol Use: No - Social History ADL: Family Assistance History of Recent Travel: No Home Medications - Allergies Allergies/Adverse Reactions: Allergies Allergy/AdvReac Type Severity Reaction Status Date / Time No Known Allergies Allergy Verified 01/14/18 17:06 - Home Medications Home Medications: Ambulatory Orders Aspirin Coated [Ecotrin -] 81 mg PO DAILY #0 tablet.ec 08/20/12 Carbidopa/Levodopa [Carbidopa-Levo 25-100 Tab] 1 each PO TID #0 tablet 08/20/12 Fenofibrate 160 mg PO DAILY #0 tablet 08/20/12 Tamsulosin HCl 0.4 mg PO DAILY 07/09/17 Amlodipine Besylate [Norvasc -] 5 mg PO DAILY 01/14/18 Atorvastatin Ca [Lipitor] 20 mg PO HS 01/14/18 Losartan Potassium 25 mg PO DAILY 01/14/18 Metoprolol Succinate [Toprol XL -] 25 mg PO BID 01/14/18 Ropinirole HCl [Requip] 0.5 mg PO BID 01/14/18 Family Disease History - Family Disease History Family History: Unable to Obtain (dementia) Review of Systems Unable to obtain ROS, reason: Dementia Physical Examination Vital Signs: Vital Signs Temperature 98.7 F 01/14/18 21:00 Pulse Rate 66 01/14/18 21:00 Respiratory Rate 20 01/14/18 21:00 Blood Pressure 136/81 01/14/18 21:00 O2 Sat by Pulse Oximetry (%) 97 01/14/18 21:00 HENT: Yes: WNL Neck: Yes: WNL, Supple Cardiovascular: Yes: WNL, Regular Rate and Rhythm Respiratory: Yes: WNL, Regular, CTA Bilaterally Gastrointestinal: Yes: WNL, Normal Bowel Sounds, Soft Extremities: Yes: WNL Edema: No ...Motor Strength: WNL Labs: CBC, BMP 01/14/18 17:43 01/14/18 17:43 Problem List - Problems (1) Syncope Assessment/Plan: Admit to tele Serial cpk/troponin to r/o ACS Caardio/neuro consults Check echo/carotid dopplers Cont asa/lipitor Code(s): R55 - SYNCOPE AND COLLAPSE Qualifiers: Syncope type: unspecified Qualified Code(s): R55 - Syncope and collapse (2) Dementia Code(s): F03.90 - UNSPECIFIED DEMENTIA WITHOUT BEHAVIORAL DISTURBANCE (3) HLD (hyperlipidemia) Code(s): E78.5 - HYPERLIPIDEMIA, UNSPECIFIED (4) HTN (hypertension) Assessment/Plan: BP stable Cont antihypertensives Code(s): I10 - ESSENTIAL (PRIMARY) HYPERTENSION (5) Parkinsons Assessment/Plan: Cont sinemet Code(s): G20 - PARKINSON'S DISEASE (6) BPH (benign prostatic hyperplasia) Code(s): N40.0 - BENIGN PROSTATIC HYPERPLASIA WITHOUT LOWER URINRY TRACT SYMP
[2018-01-15] MEDS: CARBIDOPA/LEVODOPA 25/100 TABLET (FP) PO SCH ×3 (06:36→21:36)
[2018-01-15 07:40] LABS: BASO % 0.3 % (0-2.0); EOS % 4.7 % (0-4.5); HEMATOCRIT 32.6 % (35.4-49); HEMOGLOBIN 10.8 GM/dL (11.7-16.9); LYMPH % 10.5 % (8-40); MCH 26.4 pg (25.7-33.7); MCHC 33.2 g/dl (32.0-35.9); MEAN CELL VOLUME 79.6 fl (80-96); MEAN PLT VOLUME 8.3 fl (7.5-11.1); MONO % 5.4 % (3.8-10.2); NEUT % 79.1 % (42.8-82.8); PLATELET COUNT 188 K/MM3 (134-434); RDW 17.7 % (11.9-15.9); WHITE BLOOD COUNT 7.3 K/mm3 (4.0-10.0)
[2018-01-15 08:19] LABS: ALBUMIN 3.2 g/dl (3.4-5.0); ANION GAP 5 (8-16); BLOOD UREA NITROGEN 22 mg/dL (7-18); CALCIUM 8.5 mg/dL (8.5-10.1); CHLORIDE 109 mmol/L (98-107); CO2 28 mmol/L (21-32); CREATININE 1.4 mg/dL (0.7-1.3); GLUCOSE,RANDOM 104 mg/dL (74-106); POTASSIUM 4.3 mmol/L (3.5-5.1); SGOT/AST 22 U/L (15-37); SGPT/ALT 18 U/L (12-78); SODIUM 142 mmol/L (136-145)
[2018-01-15 08:20] LABS: ALK PHOS 45 U/L (45-117); BILIRUBIN,TOTAL 0.7 mg/dL (0.2-1.0); TOT PROT 6.1 g/dl (6.4-8.2)
[2018-01-15] MEDS ORDERED: PT OWN MED DRAWER 7, Y5N ONE (08:31)
[2018-01-15] MEDS: TAMSULOSIN HCL 0.4 MG CAP.ER.24H (FP) PO SCH (08:33)
--- NOTE | 2018-01-15 08:50 | CON.CARD ---
Cardiology Consult (text) - Consultation Consultation Note: Cardiology Consult Dictated IMP: Parkinson's Disease Reported syncopal episode: patient cannot provide history REC: 1. Tele x 24 additional hours: r/o arrhythmia 2. Echo and carotid US 3. Orthostatics 4. Neuro evaluation
--- NOTE | 2018-01-15 09:15 | PN ---
Physical Exam: SUBJECTIVE: Patient seen and examined at bedside. OBJECTIVE: Vital Signs Period Temp Pulse Resp BP Sys/Leon Pulse Ox Last 24 Hr 97.2 F-98.7 F 52-84 16-20 117-160/56-83 96-100 GENERAL: The patient is awake, alert. LUNGS: Breath sounds equal, clear to auscultation bilaterally HEART: Regular rate and rhythm, S1, S2 without murmur, rub or gallop. ABDOMEN: Soft, nontender, nondistended, normoactive bowel sounds, no guarding, no rebound EXTREMITIES: 2+ pulses, warm, well-perfused, no edema. NEUROLOGICAL: Cranial nerves II through XII grossly intact. Laboratory Results - last 24 hr 01/14/18 01/14/18 01/14/18 17:43 17:43 17:43 WBC 3.6 L RBC 4.39 Hgb 11.7 Hct 35.2 L MCV 80.2 MCH 26.6 MCHC 33.1 RDW 18.0 H D Plt Count 222 D MPV 8.0 Neutrophils % 59.4 Lymphocytes % 17.8 Monocytes % 9.8 Eosinophils % 12.4 H Basophils % 0.6 Sodium 142 Potassium 4.1 Chloride 107 Carbon Dioxide 29 Anion Gap 6 L BUN 24 H D Creatinine 1.4 H Creat Clearance w eGFR 47.94 Random Glucose 110 H Calcium 8.6 Total Bilirubin 0.4 D AST 22 ALT 16 D Alkaline Phosphatase 53 Creatine Kinase 81 Troponin I 0.04 Total Protein 6.7 Albumin 3.6 Urine Color Urine Appearance Urine pH Ur Specific [place] Urine Protein Urine Glucose (UA) Urine Ketones Urine Blood Urine Nitrite Urine Bilirubin Urine Urobilinogen Ur Leukocyte Esterase Urine WBC (Auto) Urine RBC (Auto) Ur Epithelial Cells Hyaline Casts Urine Mucus Stool Occult Blood Negative 01/14/18 01/15/18 01/15/18 18:10 03:10 07:00 WBC 7.3 D RBC 4.10 Hgb 10.8 L Hct 32.6 L MCV 79.6 L MCH 26.4 MCHC 33.2 RDW 17.7 H Plt Count 188 MPV 8.3 Neutrophils % 79.1 D Lymphocytes % 10.5 D Monocytes % 5.4 Eosinophils % 4.7 H Basophils % 0.3 Sodium Potassium Chloride Carbon Dioxide Anion Gap BUN Creatinine Creat Clearance w eGFR Random Glucose Calcium Total Bilirubin AST ALT Alkaline Phosphatase Creatine Kinase 90 Troponin I 0.04 Total Protein Albumin Urine Color Dkyellow Urine Appearance Slcloudy Urine pH 5.0 Ur Specific [place] 1.027 Urine Protein 2+ H Urine Glucose (UA) Negative Urine Ketones Trace H Urine Blood Negative Urine Nitrite Negative Urine Bilirubin Negative Urine Urobilinogen 4.0 e.u/dl Ur Leukocyte Esterase Negative Urine WBC (Auto) 2 Urine RBC (Auto) 4 Ur Epithelial Cells Rare Hyaline Casts 3 Urine Mucus Few Stool Occult Blood 01/15/18 07:00 WBC RBC Hgb Hct MCV MCH MCHC RDW Plt Count MPV Neutrophils % Lymphocytes % Monocytes % Eosinophils % Basophils % Sodium 142 Potassium 4.3 Chloride 109 H Carbon Dioxide 28 Anion Gap 5 L BUN 22 H Creatinine 1.4 H Creat Clearance w eGFR 47.94 Random Glucose 104 Calcium 8.5 Total Bilirubin 0.7 D AST 22 ALT 18 Alkaline Phosphatase 45 Creatine Kinase Troponin I Total Protein 6.1 L Albumin 3.2 L Urine Color Urine Appearance Urine pH Ur Specific [place] Urine Protein Urine Glucose (UA) Urine Ketones Urine Blood Urine Nitrite Urine Bilirubin Urine Urobilinogen Ur Leukocyte Esterase Urine WBC (Auto) Urine RBC (Auto) Ur Epithelial Cells Hyaline Casts Urine Mucus Stool Occult Blood Active Medications Generic Name Dose Route Start Last Admin Trade Name Freq PRN Reason Stop Dose Admin Amlodipine Besylate 5 mg 01/15/18 10:00 Norvasc - PO DAILY [facility] Aspirin 81 mg 01/15/18 10:00 Ecotrin - PO DAILY [facility] Atorvastatin Calcium 20 mg 01/15/18 22:00 Lipitor - PO HS [facility] Carbidopa/Levodopa 1 each 01/15/18 06:00 01/15/18 06:36 Sinemet 25/100 - PO 1 each TID [facility] Administration Fenofibric Acid 135 mg 01/15/18 10:00 Trilipix - PO DAILY [facility] Heparin Sodium (Porcine) 5,000 unit 01/15/18 10:00 Heparin - SQ BID [facility] Losartan Potassium 25 mg 01/15/18 10:00 Cozaar - PO DAILY [facility] Metoprolol Succinate 25 mg 01/15/18 10:00 Toprol Xl - PO BID [facility] Ropinirole HCl 0.5 mg 01/15/18 10:00 Requip - PO BID [facility] Tamsulosin HCl 0.4 mg 01/15/18 08:30 01/15/18 08:33 Flomax - PO 0.4 mg DAILY@0830 ROBB Administration ASSESSMENT/PLAN 87 year-old male with a PMH significant for HTN, HLD, CKD, BPH, and Parkinson's disease with associated dementia. Placed on observation for syncopal episode while seated in a chair. Syncope --troponins neg x 3 --ECG not suggestive of acute ischemic event --01/15 Eco: LV normal, RV normal, trace MR; trace TR; mild AI --US carotids ordered by cardiology --continue telemetry monitoring another 24 hours per cardiology --orthostatics Parkinson's Disease Parkinson's related dementia --continue carbidopa/levodopa, ropinirole --neuro consult pending BPH --continue flomax Hypertension --continue losartan, Toprol XL, amlodipine Hyperlipidemia --continue Lipitor Visit type - Emergency Visit Emergency Visit: Yes ED Registration Date: 01/14/18 Care time: The patient presented to the Emergency Department on the above date and was hospitalized for further evaluation of their emergent condition. - New Patient This patient is new to me today: Yes Date on this admission: 01/15/18 - Critical Care Critical Care patient: No
[2018-01-15] MEDS: HEPARIN NA (PORCINE) 5,000 UNITS/ML 1ML VIAL SQ SCH ×2 (09:26→21:35)
[2018-01-15] MEDS: amLODIPine BESYLATE 5 MG TABLET (FP) PO SCH (09:26)
[2018-01-15] MEDS: LOSARTAN POTASSIUM 25 MG TABLET PO SCH (09:26)
[2018-01-15] MEDS: FENOFIBRIC ACID 135 MG CAP PO SCH (09:26)
[2018-01-15] MEDS: metoPROLOL SUCCINATE 25 MG TAB.SR.24H (FP) PO SCH ×2 (09:26→21:33)
[2018-01-15] MEDS: ASPIRIN COATED 81 MG TABLET.EC PO SCH (09:26)
[2018-01-15] MEDS ORDERED: rOPINIRole HCL 0.5 MG TABLET PO SCH (10:00)
--- NOTE | 2018-01-15 11:08 | EKG ---
Test Reason : Blood Pressure : / mmHG Vent. Rate : 047 BPM Atrial Rate : 047 BPM P-R Int : 168 ms QRS Dur : 080 ms QT Int : 436 ms P-R-T Axes : 067 -05 066 degrees QTc Int : 385 ms SINUS BRADYCARDIA WITH PREMATURE ATRIAL COMPLEXES IN A PATTERN OF BIGEMINY NONSPECIFIC ST AND T WAVE ABNORMALITY ABNORMAL ECG WHEN COMPARED WITH ECG OF 14-JUL-2017 12:44, PREMATURE ATRIAL COMPLEXES ARE NOW PRESENT VENT. RATE HAS DECREASED BY 23 BPM Confirmed by AKBAR MORA MD ([id number]) on 01/15/2018 11:08:11 AM Referred By: Confirmed By:AKBAR MORA MD
--- NOTE | 2018-01-15 11:18 | CONS ---
CARDIOLOGY CONSULTATION DATE OF CONSULTATION: 01/15/2018 The consultation was requested by Dr. Ryan. Consultation was requested for syncope. The patient is an 87-year-old male who cannot provide history, due to underlying advanced Parkinson disease. The history is obtained primarily from the ER and PMD H and P. The patient has a past history of Parkinson dementia, hypertension, BPH, and chronic renal insufficiency, who presented to the ER after a reported episode of syncope following nausea and vomiting, as per family report. The family reported that he lost consciousness. However, did not fall or hit his head and was in a chair at the time. When he was brought to the ER, he was already at baseline and reported no complaints. The family reported that he recently started a new medication last week, although could not recall which one it was. He is currently calm, in no acute distress, on telemetry, afebrile, with stable vital signs. ALLERGIES: He has no known drug allergies. CURRENT MEDICATIONS: Include amlodipine 5 mg daily, aspirin 81 mg daily, atorvastatin 20 mg nightly, Sinemet 25 per 100 one tablet t.i.d., fenofibric acid 135 mg daily, subcutaneous heparin 5000 units b.i.d. for DVT prophylaxis, losartan 25 mg p.o. daily, metoprolol succinate 25 mg b.i.d., ropinirole 0.5 mg p.o. b.i.d., and Flomax 0.4 mg p.o. daily. FAMILY HISTORY: Noncontributory. SOCIAL HISTORY: Nonsmoker. PHYSICAL EXAMINATION: Vital signs: Afebrile. Temperature 97.2, pulse 63, blood pressure 127/60, O2 of 97 on room air. Eyes: He is anicteric. Neck: No bruits. Heart: S1-2, regular. No murmur. Chest: Clear. Abdomen: Soft. Nontender. Extremities: No edema. LABORATORIES: White count 7.3, hematocrit 32.6, platelets of 188. Sodium 142, potassium 4.3, BUN and creatinine slightly prerenal ratio of 22/1.4. LFTs are normal. CK and troponin negative x2 sets. His urinalysis showed 2+ protein and trace ketones, otherwise negative. Stool guaiac was negative. Chest x-ray was unremarkable. The presenting EKG showed sinus bradycardia at 47 beats per minute with APCs, compensatory pauses. No acute [id number], nonspecific T-wave inversions. IMPRESSION: 1. Advanced Parkinson disease with dementia. 2. Reported syncopal episode in the setting of nausea and vomiting. The differential diagnosis is broad at this point and includes vasovagal syncope, cardiac arrhythmia, coronary ischemia, orthostatic hypotension. RECOMMENDATIONS: 1. Telemetry x24 hours to rule out arrhythmia. 2. Echocardiogram for EF assessment; carotid ultrasound to assess vertebral circulation. 3. Check orthostatic blood pressure. 4. Neurology evaluation. 5. Observe blood pressure carefully, as the patient is on several antihypertensive agents as well as Flomax for BPH all of which may lead to orthostatic changes. 6. Further recommendations pending above diagnostic workup. Thank you for the consultation. ALLIE COSTELLO M.D. [id number]
[2018-01-15] MEDS ORDERED: ATORVASTATIN CA 20 MG TABLET (FP) PO SCH (22:00)
--- NOTE | 2018-01-15 22:14 | CONSULT ---
Consult - text type - Consultation Consultation Note: NEUROLOGY CONSULTATION is greatly appreciated: This 87 yo Male, NH pat with h/o HTN, Parkinson's disease and Dementia was admitted after witnessed syncope in his chair in the NH. No seizure activity noted. Following syncope he had vomiting. No CT on admission. Carotid duplex shows plaques but no significant stenosis. Cardiology consultation read and appreciated. EXAM: No external head trauma. No bruits. Cor reg. NEURO: Confused. perseverates. Follows simple commands in [place]ian only Full duran to threat. No facial weakness. Gag OK No drift. Min tremor. ++ myoclonic jerks. Minimal cogwheel rigidity. Normal reflexes. Toes downgoing. Withdraws all 4's to pinch Gait deferred. IMP: Moderately severe, B/L cerebral dysfunction. No focality to support CVA Some Parkinsonian features are present. Syncope. SUGGEST: Agree with telemetry Mobilize OOB MAGGIE and check orthostatic BP's D/C Ropinirole .5 BID. Increase Sinemet CR 25/100 to QID @ 6, 10, 2, and 6 PT for gait with walker and assist. D/C metoprolol (Bradycardia) r/o occult infection. Check B12, TSH, RPR and CT of head if not recently done. Thank you very much, Denilson Lacy MD
--- NOTE | 2018-01-16 08:38 | PN ---
Progress Note, Physician Chief Complaint: feeling well TELE: Sinus, mild sinus adriana, sinus arrhythmia Echo normal LV Carotid US mild b/l plaque no sig stenosis Metoprolol discontinued for sinus adriana - Current Medication List Current Medications: Active Medications Amlodipine Besylate (Norvasc -) 5 mg PO DAILY [facility] Last Admin: 01/15/18 09:26 Dose: 5 mg Aspirin (Ecotrin -) 81 mg PO DAILY [facility] Last Admin: 01/15/18 09:26 Dose: 81 mg Atorvastatin Calcium (Lipitor -) 20 mg PO HS [facility] Last Admin: 01/15/18 21:35 Dose: 20 mg Carbidopa/Levodopa (Sinemet *Cr* 25/100 -) 1 combo PO 0600,1000,1400,1800 [facility] Last Admin: 01/16/18 05:46 Dose: 1 combo Fenofibric Acid (Trilipix -) 135 mg PO DAILY [facility] Last Admin: 01/15/18 09:26 Dose: 135 mg Heparin Sodium (Porcine) (Heparin -) 5,000 unit SQ BID [facility] Last Admin: 01/15/18 21:35 Dose: 5,000 unit Losartan Potassium (Cozaar -) 25 mg PO DAILY [facility] Last Admin: 01/15/18 09:26 Dose: 25 mg Tamsulosin HCl (Flomax -) 0.4 mg PO DAILY@0830 [facility] Last Admin: 01/15/18 08:33 Dose: 0.4 mg - Objective Vital Signs: Vital Signs Temperature 98.1 F 01/16/18 08:31 Pulse Rate 52 L 01/16/18 08:31 Respiratory Rate 16 01/16/18 08:31 Blood Pressure 127/58 01/16/18 08:31 O2 Sat by Pulse Oximetry (%) 94 L 01/16/18 05:10 Constitutional: Yes: Calm Cardiovascular: Yes: Regular Rate and Rhythm Respiratory: Yes: CTA Bilaterally Gastrointestinal: Yes: Soft Edema: No Neurological: Yes: Alert Labs: CBC, BMP 01/15/18 07:00 01/15/18 07:00 - ....Imaging EKG: Image Reviewed Assessment/Plan IMP: Syncope, likely due to chronic orthostasis secondary to autonomic dysfx in combination with bradycardia secondary to B-Derik Parkinson's Dz REC: Ambulate with PT D/C Planning off Metoprolol No further inpatient cardiac work up planned as tele does not reveal Ventricular ectopy nor sig pauses. LV fxn is normal and cardiac enzymes neg x 3.
[2018-01-16] MEDS: ASPIRIN COATED 81 MG TABLET.EC PO SCH (09:58)
[2018-01-16] MEDS: amLODIPine BESYLATE 5 MG TABLET (FP) PO SCH (09:58)
[2018-01-16] MEDS: FENOFIBRIC ACID 135 MG CAP PO SCH (09:59)
[2018-01-16] MEDS: TAMSULOSIN HCL 0.4 MG CAP.ER.24H (FP) PO SCH (09:59)
[2018-01-16] MEDS: LOSARTAN POTASSIUM 25 MG TABLET PO SCH (09:59)
[2018-01-16] MEDS: HEPARIN NA (PORCINE) 5,000 UNITS/ML 1ML VIAL SQ SCH (09:59)
[2018-01-16 18:14] VITALS: BP 124/76; PULSE 67; TEMP 98.3
--- NOTE | 2018-01-18 23:13 | DS ---
Physical Examination Vital Signs: Vital Signs Temperature 98.3 F 01/16/18 18:12 Pulse Rate 67 01/16/18 18:12 Respiratory Rate 20 01/16/18 18:12 Blood Pressure 124/76 01/16/18 18:12 O2 Sat by Pulse Oximetry (%) 96 01/16/18 08:00 Labs: CBC, BMP 01/15/18 07:00 01/15/18 07:00 Discharge Summary Reason For Visit: SYNCOPE Condition: Good - Instructions Diet, Activity, Other Instructions: 2 grams sodium diet See Dr Doan in 1 week Referrals: Last Doan MD [Primary Care Provider] - Disposition: [facility]/HOME HEALTH CARE - Home Medications Comprehensive Discharge Medication List: Ambulatory Orders Aspirin Coated [Ecotrin -] 81 mg PO DAILY #0 tablet.ec 08/20/12 Fenofibrate 160 mg PO DAILY #0 tablet 08/20/12 Tamsulosin HCl 0.4 mg PO DAILY 07/09/17 Amlodipine Besylate [Norvasc -] 5 mg PO DAILY 01/14/18 Atorvastatin Ca [Lipitor] 20 mg PO HS 01/14/18 Losartan Potassium 25 mg PO DAILY 01/14/18 Carbidopa/Levodopa *Cr* 25/100 [Sinemet *Cr* 25/100 -] 1 combo PO 0600,1000,1400 ,1800 #120 tablet.er 01/16/18
== END 2018-01-16 19:13 | disposition home health service (06) ==
LOC: JER 16:54 → JERBED 19:26 → J4W 20:29
PROVIDERS: ADMIT Internal Medicine; ATTEND Internal Medicine
PROC: 3E033GC Introduction of Other Therapeutic Substance into Peripheral Vein, Percutaneous Approach (ICD-10-PCS; principal; 2018-01-14)
DX: R55 Syncope and collapse (principal); G93.89 Other specified disorders of brain; I12.9 Hypertensive chronic kidney disease with stage 1 through stage 4 chronic kidney disease, or unspecified chronic kidney disease; N18.9 Chronic kidney disease, unspecified; G20 Parkinson's disease; F02.80 Dementia in other diseases classified elsewhere, unspecified severity, without behavioral disturbance, psychotic disturbance, mood disturbance, and anxiety; N40.0 Benign prostatic hyperplasia without lower urinary tract symptoms; E78.5 Hyperlipidemia, unspecified; Z79.82 Long term (current) use of aspirin
CPT/HCPCS: 36415; 71045-TC-FY; 80053; 81003; 81015; 82272; 82550; 84484; 85025; 87086; 93005; 93010; 93306-TC; 93880-TC; 96372; 99285-25; G0378; J1644